=== PATIENT | male | born 1940 | race African-American/Black ===

== ENCOUNTER 2022-08-10 20:46 | Observation (INO) | payer MEDICARE, SELFPAY ==
[2022-08-10 20:52] VITALS: BP 158/58; PULSE 91; RESP 16; TEMP 36.6; O2SAT 100
[2022-08-10 21:31] VITALS: BP 139/61; PULSE 86; RESP 23; O2SAT 100
--- NOTE | 2022-08-10 21:49 | ECG_ITS ---
Measurements Intervals [place] Rate: 82 P: 63 NV: 168 QRS: 19 QRSD: 75 T: 58 QT: 339 QTc: 398 Interpretive Statements SINUS RHYTHM SEPTAL MYOCARDIAL INFARCTION , OF INDETERMINATE AGE Electronically Signed On 08-11-2022 10:16:15 CDT by Moris Coughlin M.D.
[2022-08-10 21:51] LABS: Anion Gap 4 mmol/L (8-16); Blood Urea Nitrogen 32 mg/dL (9-20); Carbon Dioxide 27 mmol/L (22-30); Chloride 105 mmol/L (98-107); Estimated CRCL calculation 32 ml/min; Estimated Glomerular Filt Rate 55; Glucose 194 mg/dL (65-110); Potassium 6.2 mmol/L (3.4-5.0); Sodium 136 mmol/L (137-145)
--- NOTE | 2022-08-10 21:58 | PC.NURSE ---
Pt's daughter at bedside. Daughter is patient's caregiver and helps answer most questions. Pt had routine blood work done today and was notified that his potassium was elevated and to go to the ER. Pt denies any complaints. Denies chest pain or SOB. Lung sounds clear bilaterally.
[2022-08-10] MEDS: SODIUM CHLORIDE 0.9% IV 1,000 ML 999 ML IV CONT (22:12)
[2022-08-10] MEDS: SODIUM BICARBONATE 8.4% 50 MEQ/50 ML SYRINGE IV PUSH (22:13)
[2022-08-10] MEDS: SODIUM ZIRCONIUM CYCLOSILICATE 10 GM POWD.PACK PO (22:13)
[2022-08-10 22:21] LABS: Basophils Percent Auto 0.5 % (0.2-1.2); Eosinophils Absolute Auto 0.1 K/mm3 (0-0.3); Eosinophils Percent Auto 2.6 % (0-4.4); Hematocrit 27.1 % (42.0-52.0); Hemoglobin 8.5 g/dL (14.0-18.0); Lymphocytes Absolute Auto 1.41 K/mm3 (0.9-3.2); Mean Corpuscular HGB Conc 31.4 g/dl (32-36); Mean Corpuscular Volume 95.8 fl (80-100); Mean Platelet Volume 10.1 fl (7.4-10.4); Monocytes Absolute Auto 0.3 K/mm3 (0.1-0.6); Monocytes Percent Auto 7.1 % (2.6-8.5); Neutrophils Absolute Auto 2.1 K/mm3 (1.3-6.7); Neutrophils Percent Auto 53.8 % (45.5-73.1); Platelet Count Result 224 k/mm3 (150-375); Red Blood Count 2.83 M/mm3 (4.6-6.20); Red Cell Distribution Width 12.1 % (11.5-14.5); White Blood Count 3.9 K/mm3 (4.5-10.0)
[2022-08-10 22:24] LABS: Appearance Urine Clear (Clear); Bacteria Urine None Seen /hpf; Bilirubin Urine Negative (Negative); Blood Urine Negative (Negative); Color Urine Yellow (Yellow); Glucose Urine UA Negative (Negative); Ketones Urine Negative (Negative); Leukocyte Esterase Ur Negative LEU/UL (Negative); Nitrate Urine Negative (Negative); Non Pathogenic Casts 0-2; Protein Urine Trace mg/dL (Negative); RBC Urine 0-2 /hpf (0-2); Specific Grav Ur 1.013 (1.001-1.035); Squamous Epithelial Cell Urine None seen /hpf (Few); Urobilinogen Urine 0.2 mg/dL (<2.0); WBC Urine 0-5 /hpf
[2022-08-10 22:53] LABS: Add Urine Microscopic? YES
--- NOTE | 2022-08-10 22:59 | ED.GENADULT ---
HPI - General Adult General Chief complaint: Recheck/Abnormal Lab/Rx Stated complaint: K 6.2, bloodwork drawn today at [facility] Time Seen by Provider: 08/10/22 21:22 History of Present Illness HPI narrative: 81-year-old male presenting to the ED for evaluation of outpatient labs showing a potassium of 6.2. Patient does have prior history of chronic kidney disease. Patient has no prior history of hyperkalemia. Patient denies any complaints at this time. Related Data Allergies Allergy/AdvReac Type Severity Reaction Status Date / Time No Known Allergies Allergy Mild Verified 08/10/22 20:47 Review of Systems Review of Systems: All systems reviewed & are unremarkable except as noted in HPI and below PMFSH Social History Social History Smoking status: Never smoker Second hand tobacco smoke exposure: No Smoking end date: 05/13/1967 Alcohol intake: never Exam Narrative: APPEARANCE: Well appearing, no pain, no distress, well-nourished. HEAD: normocephalic, atraumatic. EYES: PERRLA/EOMI, conjunctivae clear. NOSE: Normal no drainage NECK: Supple. No adenopathy, no masses. RESPIRATORY: Airway patent, respirations nonlabored. Clear to auscultation bilaterally, no rales, rhonchi, wheezing. CARDIOVASCULAR: Regular rate and rhythm without murmurs rubs or gallops. ABDOMINAL: Soft, nontender, nondistended, normal bowel sounds MUSCULOSKELETAL: Moves all extremities. Strength/ROM intact, No edema, No calf tenderness. NEURO: Alert. Cranial nerves II through XII intact. Grossly intact SKIN: Warm, dry. Normal Color Course Course Emergency Course: 81-year-old male presenting for evaluation of hyperkalemia. Patient's repeat potassium was 6.2 patient's EKG showed no significant abnormalities and no significant T wave abnormalities. Patient was treated with bicarb, Lokelma, IV fluids and albuterol, insulin and glucose. Patient had no significant urinary retention on the post residual bladder scan. 1:20 AM called the [facility] and no beds were available. Discussed the case with the hospitalist and patient was accepted for admission. Vital Signs Vital signs: Vital Signs Temperature 97.9 F 08/10/22 20:52 Pulse Rate 91 08/10/22 20:52 Respiratory Rate 16 08/10/22 20:52 Blood Pressure 158/58 H 08/10/22 20:52 Pulse Oximetry 100 08/10/22 20:52 Temperature 97.9 F 08/10/22 20:52 Pulse Rate 81 08/11/22 01:32 Respiratory Rate 20 08/11/22 01:32 Blood Pressure 121/56 L 08/11/22 01:32 Pulse Oximetry 100 08/11/22 01:32 Medical Decision Making Vital Signs Vital Signs: Vital Signs Temperature 97.9 F 08/10/22 20:52 Pulse Rate 91 08/10/22 20:52 Respiratory Rate 16 08/10/22 20:52 Blood Pressure 158/58 H 08/10/22 20:52 Pulse Oximetry 100 08/10/22 20:52 Temperature 97.9 F 08/10/22 20:52 Pulse Rate 81 08/11/22 01:32 Respiratory Rate 20 08/11/22 01:32 Blood Pressure 121/56 L 08/11/22 01:32 Pulse Oximetry 100 08/11/22 01:32 Lab Data Lab results reviewed: Yes I reviewed the patient's lab results. 08/10/22 22:11 08/10/22 21:04 Labs: Lab Results 08/10/22 08/10/22 08/10/22 Range/Units 21:04 22:11 22:11 WBC 3.9 L (4.5-10.0) K/mm3 RBC 2.83 L (4.6-6.20) M/mm3 Hgb 8.5 L (14.0-18.0) g/dL Hct 27.1 L (42.0-52.0) % MCV 95.8 (80-100) fl MCH 30.0 (26-34) pg MCHC 31.4 L (32-36) g/dl RDW 12.1 (11.5-14.5) % Plt Count 224 (150-375) k/mm3 MPV 10.1 (7.4-10.4) fl Immature Gran % (Auto) 0.0 (0-0.5) % Neut % (Auto) 53.8 (45.5-73.1) % Lymph % (Auto) 36.0 (18.3-44.2) % Bryan % (Auto) 7.1 (2.6-8.5) % Eos % (Auto) 2.6 (0-4.4) % Baso % (Auto) 0.5 (0.2-1.2) % Lymph # (Auto) 1.41 (0.9-3.2) K/mm3 Bryan # (Auto) 0.3 (0.1-0.6) K/mm3 Eos # (Auto) 0.1 (0-0.3) K/mm3 Baso # (Auto) 0.0 (0.0-0.1) K/mm3 Abs Immat Gran (auto) 0.00 (0.00-0.031) K/mm3 Absolute Neuts (aut
[2022-08-10 23:01] VITALS: BP 132/62; PULSE 82; RESP 20; O2SAT 100
[2022-08-10 23:31] VITALS: BP 131/66; PULSE 81; RESP 20
[2022-08-10] MEDS: INSULIN HUMAN REGULAR (*BKC) 100 UNITS/ML 6 UNITS IV PUSH (23:43)
[2022-08-10] MEDS: DEXTROSE 50% 25 GM/50 ML SYRINGE IV PUSH (23:43)
[2022-08-10] MEDS: SODIUM CHLORIDE 0.9% IV 1,000 ML 250 ML IV CONT (23:43)
[2022-08-11] VITALS (12 sets, daily range): BP systolic 121–143; BP diastolic 52–65; PULSE 70–85; RESP 16–22; TEMP 36.4–36.6; O2SAT 96–100; BMI 24.3
--- NOTE | 2022-08-11 01:20 | PC.NURSE ---
Called [facility], spoke to VALDEZ Thomas. There are no beds available at this time at the [facility] per the Nurse/Crust Sorter, ANTHONY Roger.
--- NOTE | 2022-08-11 02:40 | ADMGEN ---
This patient, Leif Boyce, was admitted to Medical Room 348-01. Patient/family oriented to hospital policies and general routines including ID bracelet, bed and alarms, visiting hours, pain management, procedures, bathroom and other care routines, personal items, smoking policy, room service/diet, and visiting hours. Information on how to activate the Rapid Response Team has been discussed. Patient/Family are encouraged to report perceived risks to care and to ask questions if they do not understand what they are told or what they should do.
[2022-08-11 03:05] LABS: Glucose Point of Care 93 mg/dl (65-105)
[2022-08-11 06:40] LABS: Anion Gap 5 mmol/L (8-16); Blood Urea Nitrogen 28 mg/dL (9-20); Calcium 8.7 mg/dL (8.4-10.2); Carbon Dioxide 26 mmol/L (22-30); Chloride 109 mmol/L (98-107); Estimated CRCL calculation 37 ml/min; Estimated Glomerular Filt Rate > 60; Glucose 101 mg/dL (65-110); Potassium 4.9 mmol/L (3.4-5.0); Sodium 140 mmol/L (137-145)
[2022-08-11 08:52] LABS: Glucose Point of Care 91 mg/dl (65-105)
[2022-08-11 11:52] LABS: Glucose Point of Care 259 mg/dl (65-105)
--- NOTE | 2022-08-11 13:12 | PC.NURSE ---
Current medication list obtained from patients daughter at 0900.
--- NOTE | 2022-08-11 14:11 | PM.IMHP ---
H&P: HPI History of Present Illness Date/Time: 08/11/22 14:11 Chief Complaint: Chief complaint: Recheck/Abnormal Lab/Rx Stated complaint: K 6.2, bloodwork drawn today at [facility] Narrative: ED-HPI narrative: 81-year-old male presenting to the ED for evaluation of outpatient labs showing a potassium of 6.2.? Patient does have prior history of chronic kidney disease.? Patient has no prior history of hyperkalemia.? Patient denies any complaints at this time. jc is sleeping his daughter is present and provides history, patient with history of DM and seen at [facility] and had routine labs drawn on 08/10/2022 and received a call from the [facility] that patient potassium is elevated 6.2 and he needs to go to nearest ER, patient, there is no complaints of CP, palpitation or dizziness, patient was given lokelma from ER and his repeat potassium levels is 4.9, etiology is not sure cause of hyperkelemia, possibly hemolysis of sample, patient is on Lisinopril which can spare potassium, patient dehydrated as patient BUN and Scr were elevated upon arrival, will hold lisinopril, will monitor if remains clinically stable and potassium is within normal, may dishcarge patient tomorrow. Patient admitted as observation status Review of Systems Review of Systems: All systems reviewed & are unremarkable except as noted in HPI and below PMFSH Social History Social History Smoking status: Former smoker Second hand tobacco smoke exposure: No Smoking end date: 05/13/1967 Alcohol intake: never Substance use: never Lack of Transportation: No Lack of Food: Never True Current Housing: I Have Housing Concerned About Future Housing: No Difficulty Paying Gas/Electric Bills: No Difficulty Paying for Meds: No Currently Unemployed: No Education: Decline to Answer Difficulty w/ Childcare or Family Care: No Spiritual care concerns: No Meds Home Medications and Allergies Home Medications Medication Instructions Recorded Confirmed Type cholecalciferol (vitamin D3) 50 50 mcg PO BID 08/11/22 08/11/22 History mcg (2,000 unit) tablet diltiazem HCl 300 mg capsule,24 300 mg PO QAM 08/11/22 08/11/22 History hr,extended release ferrous sulfate 325 mg (65 mg 325 mg PO DAILY 08/11/22 08/11/22 History iron) tablet lisinopril 20 mg tablet 20 mg PO DAILY 08/11/22 08/11/22 History metformin 500 mg tablet 500 mg PO BID 08/11/22 08/11/22 History Allergies Allergy/AdvReac Type Severity Reaction Status Date / Time No Known Allergies Allergy Mild Verified 08/10/22 20:47 Vital Signs Vital Signs - 24 hr 08/10/22 20:52 08/10/22 21:31 08/10/22 23:01 Temperature 97.9 F Pulse Rate 91 86 82 Respiratory Rate 16 23 H 20 Blood Pressure 158/58 H 139/61 132/62 Pulse Oximetry 100 100 100 Oxygen Delivery 08/10/22 23:31 08/11/22 01:01 08/11/22 01:32 Temperature Pulse Rate 81 85 81 Respiratory Rate 20 22 H 20 Blood Pressure 131/66 132/61 121/56 L Pulse Oximetry 99 100 Oxygen Delivery 08/11/22 02:40 08/11/22 04:00 08/11/22 04:07 Temperature 97.8 F Pulse Rate 72 85 Respiratory Rate 18 Blood Pressure 135/65 Pulse Oximetry 96 Oxygen Delivery Room Air 08/11/22 08:07 Temperature Pulse Rate Respiratory Rate Blood Pressure Pulse Oximetry 96 Oxygen Delivery Room Air Exam Narrative: Patient is comfortable, NAD HEENT: eyes are clear and none icteric LUNGS: Normal respiratory effort ABD: Not distended Lower extremities: no edema SKIN: nonjaundiced Neuro: grossly intact. H&P: Results Labs Labs: Short CBC 08/10/22 Range/Units 22:11 WBC 3.9 L (4.5-10.0) K/mm3 Hgb 8.5 L (14.0-18.0) g/dL Hct 27.1 L (42.0-52.0) % Plt Count 224 (150-375) k/mm3 [facility] 08/10/22 08/11/22 21:04 06:02 Sodium 136 L 140 Potassium 6.2 H* 4.9 Chloride 105 109 H Carbon Dioxide 27 26 BUN 32 H 28 H Creatinine 1.50 H 1.30 Glucose 194 H 101 Calcium 9.0 8.7
[2022-08-11] MEDS: FERROUS SULFATE 324 MG TABLET PO (16:53)
[2022-08-11] MEDS: metFORMIN HCL 500 MG TABLET PO (16:53)
[2022-08-11 16:59] LABS: Glucose Point of Care 152 mg/dl (65-105)
[2022-08-11] MEDS: ACETAMINOPHEN 500 MG TABLET 1000 MG PO (18:26)
[2022-08-11] MEDS: CHOLECALCIFEROL 1,000 UNITS TABLET 2000 UNITS PO (21:31)
[2022-08-12] VITALS: PULSE 51
[2022-08-12] MEDS: ACETAMINOPHEN 500 MG TABLET 1000 MG PO ×4 (00:13→17:12)
[2022-08-12 04:16] VITALS: BP 143/55; PULSE 67; RESP 18; TEMP 36.1; O2SAT 100
[2022-08-12 06:03] LABS: Hematocrit 29.9 % (42.0-52.0); Hemoglobin 9.1 g/dL (14.0-18.0); Mean Corpuscular HGB Conc 30.4 g/dl (32-36); Mean Corpuscular Volume 95.2 fl (80-100); Mean Platelet Volume 10.1 fl (7.4-10.4); Platelet Count Result 257 k/mm3 (150-375); Red Blood Count 3.14 M/mm3 (4.6-6.20); White Blood Count 4.3 K/mm3 (4.5-10.0)
[2022-08-12 06:18] LABS: Anion Gap 6 mmol/L (8-16); Blood Urea Nitrogen 24 mg/dL (9-20); Carbon Dioxide 27 mmol/L (22-30); Chloride 105 mmol/L (98-107); Estimated CRCL calculation 37 ml/min; Estimated Glomerular Filt Rate > 60; Glucose 119 mg/dL (65-110); Magnesium 1.7 mg/dL (1.6-2.3); Potassium 4.8 mmol/L (3.4-5.0); Sodium 138 mmol/L (137-145)
[2022-08-12 08:21] LABS: Glucose Point of Care 113 mg/dl (65-105)
[2022-08-12 09:00] VITALS: PULSE 67; RESP 18; O2SAT 100
[2022-08-12] MEDS: ENOXAPARIN 40 MG/0.4 ML SYRINGE SUB-Q (09:01)
[2022-08-12] MEDS: FERROUS SULFATE 324 MG TABLET PO (09:02)
[2022-08-12] MEDS: CHOLECALCIFEROL 1,000 UNITS TABLET 2000 UNITS PO (09:02)
[2022-08-12] MEDS: metFORMIN HCL 500 MG TABLET PO ×2 (09:02→17:13)
[2022-08-12 12:20] LABS: Glucose Point of Care 173 mg/dl (65-105)
[2022-08-12 14:00] VITALS: BP 129/47; PULSE 57; RESP 16; TEMP 36.1; O2SAT 100
[2022-08-12 17:09] LABS: Glucose Point of Care 155 mg/dl (65-105)
--- NOTE | 2022-08-12 18:22 | PM.DS ---
DS: Admitting Diagnosis Discharge Date 08/12/2022 Admitting Diagnosis Hyperkalemia DS: Discharge Diagnosis Discharge Diagnosis (1) Acute hyperkalemia: Code(s): E87.5 - Hyperkalemia Status: Acute Assessment and Plan: ED-[facility] narrative: 81-year-old male presenting to the ED for evaluation of outpatient labs showing a potassium of 6.2.? Patient does have prior history of chronic kidney disease.? Patient has no prior history of hyperkalemia.? Patient denies any complaints at this time. jc is sleeping his daughter is present and provides history, patient with history of DM and seen at [facility] and had routine labs drawn on 08/10/2022 and received a call from the [facility] that patient potassium is elevated 6.2 and he needs to go to nearest ER, patient, there is no complaints of CP, palpitation or dizziness, patient was given lokelma from ER and his repeat potassium levels is 4.9, etiology is not sure cause of hyperkelemia, possibly hemolysis of sample, patient is on Lisinopril which can spare potassium, patient dehydrated as patient BUN and Scr were elevated upon arrival, will hold lisinopril, will monitor if remains clinically stable and potassium is within normal, may dishcarge patient tomorrow. (2) CKD (chronic kidney disease): Code(s): N18.9 - Chronic kidney disease, unspecified Status: Acute Assessment and Plan: Most likely acute on chronic secondary to dehydration will monitor kidney function (3) Diabetes: Code(s): E11.9 - Type 2 diabetes mellitus without complications Status: Acute Assessment and Plan: Will resume home medication monitor sliding scale DS: Summary Hospital Course Reason for hospitalization: 81-year-old male presenting to the ED for evaluation of outpatient labs showing a potassium of 6.2.? Patient does have prior history of chronic kidney disease.? Patient has no prior history of hyperkalemia.? Patient denies any complaints at this time. jc is sleeping his daughter is present and provides history, patient with history of DM and seen at [facility] and had routine labs drawn on 08/10/2022 and received a call from the [facility] that patient potassium is elevated 6.2 and he needs to go to nearest ER, patient, there is no complaints of CP, palpitation or dizziness, patient was given lokelma from ER and his repeat potassium levels is 4.9, etiology is not sure cause of hyperkelemia, possibly hemolysis of sample, patient is on Lisinopril which can spare potassium, patient dehydrated as patient BUN and Scr were elevated upon arrival, will hold lisinopril, will monitor if remains clinically stable and potassium is within normal, may dishcarge patient tomorrow. Hospital Course: patient was given lokelma from ER and his repeat potassium levels is 4.9, etiology is not sure cause of hyperkelemia, possibly hemolysis of sample, patient is on Lisinopril which can spare potassium, patient dehydrated as patient BUN and Scr were elevated upon arrival, held lisinopril, today patient potassium is close to normal, patient is clinically stable will discharge the patient with his daughter to follow up with his primary care provider at [facility]. Time Spent with Patient Time attestation: Total time spent providing and/or coordinating discharge services: Exam Narrative: Patient is comfortable, NAD HEENT: eyes are clear and none icteric LUNGS: Normal respiratory effort ABD: Not distended Lower extremities: no edema SKIN: nonjaundiced Neuro: grossly intact. DS: Data Data Completed and Pending Labs on day of discharge: Labs from last 24 hours 08/12/22 08/12/22 08/12/22 17:01 12:16 08:16 WBC RBC Hgb Hct MCV MCH MCHC RDW Plt Count MPV Sodium Potassium Chloride Carbon Dioxide Anion Gap BUN Creatinine Estim Creat Clear Calc Estimated GFR Glucose POC Capillary Glucose 155 H 173 H 113 H Calcium
== END 2022-08-12 18:41 | disposition home or self-care (01) ==
LOC: ANHED 08-11 00:16 → ANH3MED 08-11 02:32
PROVIDERS: Emergency Medicine; Internal Medicine; Admitting Provider Family Medicine; Emergency Provider Emergency Medicine; Visit Provider Family Medicine
DX: E87.5 Hyperkalemia (principal); E11.22 Type 2 diabetes mellitus with diabetic chronic kidney disease; N18.9 Chronic kidney disease, unspecified; Z79.85 Long-term (current) use of injectable non-insulin antidiabetic drugs; R33.9 Retention of urine, unspecified; E86.0 Dehydration; R79.89 Other specified abnormal findings of blood chemistry; Z87.891 Personal history of nicotine dependence; Z79.84 Long term (current) use of oral hypoglycemic drugs; Z79.899 Other long term (current) drug therapy
CPT/HCPCS: 36415; 80048; 81001; 82948; 83735; 85025; 85027; 93005; 96361; 96372; 96374; 96375; 99285; A9270; G0378; J1650; J1815; J7030

== ENCOUNTER 2023-02-23 17:04 | Emergency (ER) | payer MEDICARE, OTHER, SELFPAY ==
[2023-02-23 17:17] VITALS: BP 149/56; PULSE 66; RESP 14; TEMP 36.6; O2SAT 100
[2023-02-23] MEDS: LIDO 1%/EPINEPHRINE 1:100,000 50 ML VIAL 8 ML INFILTRATE (17:35)
--- NOTE | 2023-02-23 17:46 | ED.SKABFB ---
HPI - Skin/Abscess/Foreign Bdy General Chief complaint: Skin/Abscess/Foreign Body Stated complaint: red spot on back Time Seen by Provider: 02/23/23 17:20 Source: patient, family (Daughter) and RN notes reviewed Mode of arrival: ambulatory Limitations: no limitations History of Present Illness HPI narrative: Lien presents patient today complaining of a red lump to patient's left mid back x4 days. Currently rates pain 2/10. He has tried no [id number] interventions prior to arrival. No history of abscesses or staph infections. Related Data Home Medications Medication Instructions Recorded Confirmed cholecalciferol (vitamin D3) 50 50 mcg PO BID 08/11/22 02/23/23 mcg (2,000 unit) tablet diltiazem HCl 300 mg capsule,24 300 mg PO QAM 08/11/22 02/23/23 hr,extended release ferrous sulfate 325 mg (65 mg 325 mg PO DAILY 08/11/22 02/23/23 iron) tablet lisinopril 20 mg tablet 20 mg PO DAILY 08/11/22 02/23/23 metformin 500 mg tablet 500 mg PO BID 08/11/22 02/23/23 Allergies Allergy/AdvReac Type Severity Reaction Status Date / Time No Known Allergies Allergy Mild Verified 08/10/22 20:47 Review of Systems Review of Systems: CONSTITUTIONAL: Denies body aches, fever, chills, or sweats. EYES: Denies visual changes, redness, or discharge. ENT: Denies rhinorrhea, congestion, sore throat, or otalgia. CARDIOVASCULAR: Denies chest pain, palpitations, or edema. RESPIRATORY: Denies cough or dyspnea. GASTROINTESTINAL: Denies abdominal pain, nausea, vomiting, or diarrhea. GENITOURINARY: Denies dysuria or hematuria. SKIN: + abscess MUSCULOSKELETAL: Denies back pain, joint pain, or myalgia. NEUROLOGIC: Denies headache, numbness, tingling, or weakness. PSYCH: Denies depression or anxiety. [facility] Past Medical History Medical History (Updated 02/23/23 @ 17:52 by Yadira Fiore, ALFONSO, BC) Carotid artery disease History of heart attack Surgical History Surgical History (Updated 02/23/23 @ 17:52 by Yadira Fiore, ALFONSO, BC) History of cholecystectomy Social History Social History Smoking status: Former smoker Second hand tobacco smoke exposure: No Smoking end date: 05/13/1967 Alcohol intake: never Substance use: never Lack of Transportation: No Lack of Food: Never True Current Housing: I Have Housing Concerned About Future Housing: No Difficulty Paying Gas/Electric Bills: No Difficulty Paying for Meds: No Currently Unemployed: No Education: Decline to Answer Difficulty w/ Childcare or Family Care: No Spiritual care concerns: No Comments At time of signature, I have reviewed and agree with nursing past medical, surgical, social and family history unless otherwise noted. Please see nursing chart for further information. There is no relevant family history pertinent to the presenting complaint Exam Narrative: GENERAL: Well-appearing, well-nourished, and in no acute distress. HEAD: Normocephalic, atraumatic. EYES: EOMI. No redness or drainage. Conjunctivae normal. ENT: Mucous membranes pink and moist. NECK: Normal AROM. EXTREMITIES: Normal range of motion. No edema. SKIN: Warm, dry, no rash. Capillary refill normal. Normal skin turgor. Approximately 3 cm erythematous fluctuant lesion to the left mid back that is mildly tender to palpation. No drainage. NEURO: No focal deficits. Alert and oriented x3. Gait steady. PSYCH: Normal affect. No signs of depression or anxiety. Course Course Level of Care: Express Care Visit Vital Signs Vital signs: Vital Signs Temperature 97.8 F 02/23/23 17:17 Pulse Rate 66 02/23/23 17:17 Respiratory Rate 14 02/23/23 17:17 Blood Pressure 149/56 H 02/23/23 17:17 Pulse Oximetry 100 02/23/23 17:17 Oxygen Delivery Room Air 02/23/23 17:17 Temperature 97.8 F 02/23/23 17:17 Pulse Rate 66 02/23/23 17:17 Respiratory Rate 14 02/23/23 17:17
== END 2023-02-23 17:52 | disposition home or self-care (01) ==
PROVIDERS: Emergency Provider Nurse Practitioner
DX: L02.212 Cutaneous abscess of back [any part, except buttock and flank] (principal); Z87.891 Personal history of nicotine dependence; I25.10 Atherosclerotic heart disease of native coronary artery without angina pectoris; I25.2 Old myocardial infarction
CPT/HCPCS: 10061; 99213; G0463

== ENCOUNTER 2023-04-05 07:12 | Emergency (ER) | payer MEDICARE, OTHER, SELFPAY ==
[2023-04-05] VITALS (10 sets, daily range): BP systolic 124–152; BP diastolic 57–73; PULSE 81–88; RESP 19–24; TEMP 36.6; O2SAT 100
--- NOTE | ~2023-04-05 | CT_ITS ---
EXAMINATION: CT abdomen pelvis w con INDICATION: Lower abdominal pain TECHNIQUE: Computed tomographic images of the abdomen and pelvis were obtained after the administrati on of 100 cc of Omnipaque 350 intravenous contrast. The dose-length product (DLP) was 353.72 mGy-cm. Automated exposure control and iterative reconstruction technique were employed. COMPARISON: 12/22/2015 FINDINGS: Minimal dependent atelectasis is present in the lung bases. The heart size is normal. Vogt es of cholecystectomy are noted. The liver is diffusely low in attenuation when compared with the spl een, consistent with hepatic steatosis. The spleen, pancreas, and adrenal glands are normal. Cysts of the kidneys measure up to 13 mm on the left. No pathologically enlarged abdominal or pelvic lymph no kamala are identified. No free intraperitoneal gas or evidence of bowel obstruction. There is marked enl argement of the prostate. There is circumferential wall thickening of the urinary bladder. There is s evere lumbar spondylosis. IMPRESSION: 1. No CT correlate for the patient's symptoms. 2. Marked enlargement of the prostate with circumferential wall thickening of the urinary bladder, li [place] due to chronic outlet obstruction. Reviewed, dictated and finalized at location [facility]. [facility] IMPRESSION: 1. No CT correlate for the patient's symptoms. 2. Marked enlargement of the prostate with circumferential wall thickening of t he urinary bladder, likely due to chronic outlet obstruction.
--- NOTE | 2023-04-05 08:01 | ED.GENADULT ---
HPI - General Adult General Chief complaint: GI Bleed Stated complaint: abdominal pain Time Seen by Provider: 04/05/23 07:24 History of Present Illness HPI narrative: 82-year-old male presented to the emergency department for evaluation reported abdominal pain, dark stool and decreased p.o. intake. Daughter states that the patient had lived with his brother for approximately 14 years but the brother did recently passed and now the patient lives with daughter. Daughter states that the patient has had decreased p.o. intake. States that the patient had been complaining of abdominal pain earlier. Patient is not complaining of abdominal pain at this time. The daughter states that she felt the patient had some dark stools today as well. Related Data Home Medications Medication Instructions Recorded Confirmed cholecalciferol (vitamin D3) 50 50 mcg PO BID 08/11/22 02/23/23 mcg (2,000 unit) tablet diltiazem HCl 300 mg capsule,24 300 mg PO QAM 08/11/22 02/23/23 hr,extended release ferrous sulfate 325 mg (65 mg 325 mg PO DAILY 08/11/22 02/23/23 iron) tablet lisinopril 20 mg tablet 20 mg PO DAILY 08/11/22 02/23/23 metformin 500 mg tablet 500 mg PO BID 08/11/22 02/23/23 Allergies Allergy/AdvReac Type Severity Reaction Status Date / Time No Known Allergies Allergy Mild Verified 04/05/23 07:23 Review of Systems Review of Systems: All systems reviewed & are unremarkable except as noted in HPI and below PMFSH Past Medical History Medical History (Updated 04/06/23 @ 00:00 by Nicole Luo) Carotid artery disease History of heart attack Surgical History Surgical History (Updated 02/23/23 @ 17:52 by Yadira Fiore, [employer], ) History of cholecystectomy Social History Social History Smoking status: Former smoker Second hand tobacco smoke exposure: No Smoking end date: 05/13/1967 Alcohol intake: never Substance use: never Lack of Transportation: No Lack of Food: Never True Current Housing: I Have Housing Concerned About Future Housing: No Difficulty Paying Gas/Electric Bills: No Difficulty Paying for Meds: No Currently Unemployed: No Education: Decline to Answer Difficulty w/ Childcare or Family Care: No Spiritual care concerns: No Exam Narrative: APPEARANCE: Well appearing, no pain, no distress, well-nourished. HEAD: normocephalic, atraumatic. EYES: PERRLA/EOMI, conjunctivae clear. NOSE: Normal no drainage EARS:TMS clear with good light reflex. THROAT: Pharynx clear, no exudate. NECK: Supple. No adenopathy, no masses. RESPIRATORY: Airway patent, respirations nonlabored. Clear to auscultation bilaterally, no rales, rhonchi, wheezing. CARDIOVASCULAR: Regular rate and rhythm without murmurs rubs or gallops. ABDOMINAL: Soft, nontender, nondistended, normal bowel sounds MUSCULOSKELETAL: Moves all extremities. Strength/ROM intact, No edema, No calf tenderness. NEURO: Alert. Cranial nerves II through XII intact. Good gait. Good coordination Rectal exam: Hemoccult negative SKIN: Warm, dry. Normal Color Course Course Emergency Course: 82-year-old male presents emergency department for evaluation dark stool abdominal pain and failure to thrive. Patient was Hemoccult negative on his digital rectal exam Patient denies any pain or complaint. Patient was afebrile with no leukocytosis and a hemoglobin of 10.2. This is similar to his baseline. Patient did have a potassium of 5.2 a creatinine of 1.5 and patient was treated with IV fluids. Patient has no evidence of urinary tract infection. Patient was Hemoccult negative from below. Patient was negative for influenza RSV and COVID. Patient's CT scan showed no acute abnormality. I updated the patient family results of the workup all questions and concerns were addressed. Patient denies any complaints. Daughter still had concerns that the patient still does n
[2023-04-05 08:03] LABS: Basophils Percent Auto 0.2 % (0.2-1.2); Eosinophils Percent Auto 0.7 % (0-4.4); Hemoglobin 10.2 g/dL (14.0-18.0); Immature Granulocyte Absolute 0.01 K/mm3 (0.00-0.031); Immature Granulocyte Percent A 0.2 % (0-0.5); Lymphocytes Absolute Auto 1.23 K/mm3 (0.9-3.2); Lymphocytes Percent Auto 26.9 % (18.3-44.2); Mean Corpuscular Hemoglobin 28.5 pg (26-34); Mean Platelet Volume 10.2 fl (7.4-10.4); Monocytes Absolute Auto 0.2 K/mm3 (0.1-0.6); Monocytes Percent Auto 3.9 % (2.6-8.5); Neutrophils Absolute Auto 3.1 K/mm3 (1.3-6.7); Neutrophils Percent Auto 68.1 % (45.5-73.1); Platelet Count Result 261 k/mm3 (150-375); Red Blood Count 3.58 M/mm3 (4.6-6.20); Red Cell Distribution Width 12.2 % (11.5-14.5); White Blood Count 4.6 K/mm3 (4.5-10.0)
[2023-04-05 08:15] LABS: Prothrombin Time 13.2 Seconds (11.1-14.7)
[2023-04-05 08:16] LABS: Partial Thromboplastin Time 26.6 SECONDS (22.3-36.8)
[2023-04-05 08:56] LABS: Alanine Aminotransferase 10 U/L (6-50); Albumin Level 3.9 g/dL (3.5-5.1); Alkaline Phosphatase 68 U/L (38-126); Anion Gap 9 mmol/L (8-16); Aspartate Amino Transferase 23 U/L (17-59); Bilirubin,Total 0.4 mg/dL (0.2-1.3); Blood Urea Nitrogen 28 mg/dL (9-20); Calcium 9.5 mg/dL (8.4-10.2); Carbon Dioxide 26 mmol/L (22-30); Chloride 103 mmol/L (98-107); Estimated CRCL calculation 30 ml/min; Estimated Glomerular Filt Rate 55; Glucose 114 mg/dL (65-110); Potassium 5.2 mmol/L (3.4-5.0); Sodium 138 mmol/L (137-145)
[2023-04-05 09:17] LABS: Influenza A QL RT-PCR Negative (Negative); Influenza B QL RT-PCR Negative (Negative); RSV RNA, RT-PCR Negative (Negative); SARS-CoV-2 RNA PCR Negative (Negative)
[2023-04-05 09:17] LABS: Appearance Urine Clear (Clear); Bacteria Urine None Seen /hpf; Bilirubin Urine Negative (Negative); Blood Urine 2+ (Negative); Color Urine Yellow (Yellow); Glucose Urine UA Negative (Negative); Ketones Urine Negative (Negative); Leukocyte Esterase Ur Negative LEU/UL (Negative); Nitrate Urine Negative (Negative); Non Pathogenic Casts 0-2; Protein Urine Negative (Negative); RBC Urine 21-50 /hpf (0-2); Specific Grav Ur 1.013 (1.001-1.035); Squamous Epithelial Cell Urine None seen /hpf (Few); WBC Urine 0-5 /hpf; pH Urine 6.5 (5.0-9.0)
[2023-04-05 09:28] LABS: Add Urine Microscopic? YES
== END 2023-04-05 10:44 | disposition home or self-care (01) ==
PROVIDERS: Emergency Provider Emergency Medicine
DX: R53.1 Weakness (principal); R63.0 Anorexia; Z20.822 Contact with and (suspected) exposure to COVID-19; I25.10 Atherosclerotic heart disease of native coronary artery without angina pectoris; I25.2 Old myocardial infarction; Z90.49 Acquired absence of other specified parts of digestive tract; Z87.891 Personal history of nicotine dependence; Z79.84 Long term (current) use of oral hypoglycemic drugs; Z68.21 Body mass index [BMI] 21.0-21.9, adult
CPT/HCPCS: 36415; 74177; 80053; 81001; 85025; 85610; 85730; 86850; 86900; 86901; 87637; 99284; Q9967

== ENCOUNTER 2023-04-12 00:43 | Inpatient (IN) | payer OTHER, MEDICARE, SELFPAY ==
[2023-04-12] VITALS (20 sets, daily range): BP systolic 105–164; BP diastolic 58–89; PULSE 100–129; RESP 12–23; TEMP 36.2–36.8; O2SAT 93–100; BMI 17.4
--- NOTE | ~2023-04-12 | CT_ITS ---
Non-contrast CT scan of the Abdomen and Pelvis Clinical indication: Acute renal sufficiency Technique: 2.5 mm axial scans were obtained through the abdomen and pelvis without intravenous or or al contrast. Dose reduction technique was used on this scan by utilizing automated exposure control a nd iterative reconstruction technique. The dose-length product (DLP) was 523.28 mGy-cm. COMPARISON: 04/05/2023 Findings: Images through the lung bases reveal no abnormalities. There is no evidence of renal or ureteral calculi. The kidneys and the ureters are nondilated. The liver, spleen, pancreas, and adrenals appear normal. Cholecystectomy clips are present. There is no aortic aneurysm. There is no evidence of bowel obstruction. Questionable wall thickening of the duodenum. Images through the pelvis were performed. There is no evidence of ascites or lymphadenopathy. Urinary bladder unremarkable. Prostate gland is markedly enlarged. Impression: Possible wall thickening of the duodenum. Correlate for duodenitis/peptic ulcer disease. No free air evident. Markedly enlarged prostate gland. Reviewed, dictated and finalized at [facility]. [employer] Impression: Possible wall thickening of the duodenum. Correlate for duodenitis/peptic ulcer disease. No free air evident. Markedly enlarged prostate gland.
[2023-04-12 00:52] LABS: Glucose Point of Care > 500 mg/dl (65-105)
[2023-04-12 01:01] LABS: Basophils Percent Auto 0.1 % (0.2-1.2); Hematocrit 34.7 % (42.0-52.0); Hemoglobin 10.6 g/dL (14.0-18.0); Immature Granulocyte Absolute 0.07 K/mm3 (0.00-0.031); Immature Granulocyte Percent A 0.5 % (0-0.5); Lymphocytes Absolute Auto 0.68 K/mm3 (0.9-3.2); Lymphocytes Percent Auto 4.6 % (18.3-44.2); Mean Corpuscular HGB Conc 30.5 g/dl (32-36); Mean Corpuscular Hemoglobin 28.6 pg (26-34); Mean Corpuscular Volume 93.5 fl (80-100); Mean Platelet Volume 11.1 fl (7.4-10.4); Monocytes Absolute Auto 0.8 K/mm3 (0.1-0.6); Monocytes Percent Auto 5.7 % (2.6-8.5); Neutrophils Absolute Auto 13.2 K/mm3 (1.3-6.7); Neutrophils Percent Auto 89.1 % (45.5-73.1); Platelet Count Result 290 k/mm3 (150-375); Red Blood Count 3.71 M/mm3 (4.6-6.20); Red Cell Distribution Width 12.7 % (11.5-14.5); White Blood Count 14.8 K/mm3 (4.5-10.0)
[2023-04-12 01:16] LABS: Beta-Hydroxybutyrate/Acetoacetate 0.61 mmol/L (0.02-0.27)
[2023-04-12 01:24] LABS: Anisocytosis 1+ (NORMAL); Platelet Estimate Adequate (Adequate); Poikilocytosis 1+ (NORMAL); Schistocytes Rare (NORMAL); Smudge Cells PRESENT
[2023-04-12 01:56] LABS: Appearance Urine Cloudy (Clear); Bacteria Urine 1+ /hpf; Bilirubin Urine Negative (Negative); Blood Urine 3+ (Negative); Color Urine Yellow (Yellow); Glucose Urine UA 3+ mg/dL (Negative); Ketones Urine Negative (Negative); Leukocyte Esterase Ur Negative LEU/UL (Negative); Nitrate Urine Negative (Negative); Non Pathogenic Casts 0-2; Protein Urine 2+ mg/dL (Negative); RBC Urine >100 /hpf (0-2); Specific Grav Ur 1.021 (1.001-1.035); Squamous Epithelial Cell Urine Occasional /hpf (Few); Urobilinogen Urine 0.2 mg/dL (<2.0); pH Urine 5.5 (5.0-9.0)
[2023-04-12 02:09] LABS: Add Urine Microscopic? YES
[2023-04-12 02:09] LABS: Alanine Aminotransferase 11 U/L (6-50); Albumin Level 4.1 g/dL (3.5-5.1); Alkaline Phosphatase 132 U/L (38-126); Anion Gap 13 mmol/L (8-16); Aspartate Amino Transferase 19 U/L (17-59); Bilirubin,Total 0.7 mg/dL (0.2-1.3); Blood Urea Nitrogen 94 mg/dL (9-20); Calcium 9.6 mg/dL (8.4-10.2); Carbon Dioxide 19 mmol/L (22-30); Chloride 111 mmol/L (98-107); Estimated CRCL calculation 11 ml/min; Estimated Glomerular Filt Rate 15; Glucose 593 mg/dL (65-110); Magnesium 2.1 mg/dL (1.6-2.3); Sodium 143 mmol/L (137-145)
[2023-04-12] MEDS: INSULIN HUMAN REGULAR (*BKC) 100 UNITS/ML 10 UNITS IV PUSH (02:30)
[2023-04-12] MEDS: SODIUM CHLORIDE 0.9% IV 1,000 ML 999 ML IV CONT ×2 (02:31)
[2023-04-12 04:09] LABS: Glucose Point of Care 441 mg/dl (65-105)
[2023-04-12] MEDS: SODIUM CHLORIDE 0.9% IV 1,000 ML 150 ML IV CONT (05:15)
--- NOTE | 2023-04-12 06:03 | ECG_ITS ---
Measurements Intervals [place] Rate: 110 P: 65 VT: 132 QRS: 41 QRSD: 81 T: 81 QT: 320 QTc: 435 Interpretive Statements SINUS TACHYCARDIA ABNORMAL RHYTHM ECG COMPARED TO ECG 08/10/2022 22:15:12 HEART RATE IS ACCELERATED Electronically Signed On 04-12-2023 13:25:08 DONATION WORKER by George Rosario M.D.
--- NOTE | 2023-04-12 06:06 | ED.GENADULT ---
HPI - General Adult General Chief complaint: Unspecified Stated complaint: high glucose Time Seen by Provider: 04/12/23 02:08 History of Present Illness HPI narrative: patient is a 82-year-old gentleman who presents emergency department chief complaint of hyperglycemia. Patient has history of diabetes is just on metformin and notices blood sugars were running in the 500s. The patient states he feels very weak and run down. Related Data Home Medications Medication Instructions Recorded Confirmed cholecalciferol (vitamin D3) 50 50 mcg PO BID 08/11/22 02/23/23 mcg (2,000 unit) tablet diltiazem HCl 300 mg capsule,24 300 mg PO QAM 08/11/22 02/23/23 hr,extended release ferrous sulfate 325 mg (65 mg 325 mg PO DAILY 08/11/22 02/23/23 iron) tablet lisinopril 20 mg tablet 20 mg PO DAILY 08/11/22 02/23/23 metformin 500 mg tablet 500 mg PO BID 08/11/22 02/23/23 Allergies Allergy/AdvReac Type Severity Reaction Status Date / Time No Known Allergies Allergy Mild Verified 04/05/23 07:23 Review of Systems Review of Systems: A 10 system review of systems was completed on the patient and is negative except for what is stated in the HPI. Nursing and ancillary documentation was reviewed. [facility] Past Medical History Medical History Carotid artery disease History of heart attack Surgical History Surgical History History of cholecystectomy Social History Social History Smoking status: Former smoker Second hand tobacco smoke exposure: No Smoking end date: 05/13/1967 Alcohol intake: never Substance use: never Lack of Transportation: No Lack of Food: Never True Current Housing: I Have Housing Concerned About Future Housing: No Difficulty Paying Gas/Electric Bills: No Difficulty Paying for Meds: No Currently Unemployed: No Education: Decline to Answer Difficulty w/ Childcare or Family Care: No Spiritual care concerns: No Exam Narrative: GENERAL: Well-appearing, well-nourished, and in no acute distress. HEAD: Normocephalic, atraumatic. EYES: PERRLA and EOMI. ENT: Nares clear, no rhinorrhea or epistaxis. Mucous membranes moist. NECK: Supple. CHEST: Clear to auscultation. No respiratory distress. HEART: Regular rate and rhythm. No murmur heard. Normal peripheral pulses. ABDOMEN: Soft, nontender, nondistended, normal active bowel sounds. EXTREMITIES: Normal range of motion. No edema. SKIN: Warm, dry, no rash. NEURO: No focal deficits. Alert and oriented x3. PSYCH: Normal mood and affect. Course Vital Signs Vital signs: Vital Signs Temperature 36.8 C 04/12/23 00:33 Pulse Rate 113 H 04/12/23 00:33 Respiratory Rate 23 H 04/12/23 00:33 Blood Pressure 161/85 H 04/12/23 00:33 Pulse Oximetry 98 04/12/23 00:33 Oxygen Delivery Room Air 04/12/23 00:33 Temperature 36.8 C 04/12/23 00:33 Pulse Rate 100 04/12/23 05:22 Respiratory Rate 19 04/12/23 05:22 Blood Pressure 149/89 H 04/12/23 05:22 Pulse Oximetry 100 04/12/23 05:22 Oxygen Delivery Room Air 04/12/23 00:33 Medical Decision Making MDM Narrative Medical decision making narrative: differential diagnosis includes DKA, HHS, renal failure, UTI, intra-abdominal infection. Laboratory studies were obtained on the patient showed a white count of 14.8 electrolytes showed a potassium of 6.0 CO2 was 19 BUN was 94 creatinine is 4.5 glucose was 593. Patient received 2 L normal saline boluses and was given 10 units of IV insulin. Blood sugar has come down to 441 liver enzymes within normal beta hydroxybutyrate 0.61 urinalysis showed greater than 100 rbc's 6-[address] scan of the abdomen pelvis showed Possible wall thickening of the duodenum. Correlate for duodenitis/peptic ulcer di
--- NOTE | 2023-04-12 07:47 | PM.IMHP ---
H&P: HPI History of Present Illness Date/Time: 04/12/23 07:47 Chief Complaint: General weakness Narrative: patient is a 82-year-old gentleman with history of type 2 diabetes, CKD stage 3, chronic anemia, essential hypertension, present ED with a chief complaint of general weakness and uncontrolled glucose. Patient has been having general weakness a in past few more days, getting worse gradually. Patient has history of diabetes on metformin and and he notices blood sugars were running in the 500s.? Patient came to ED for evaluation, in the ED, patient was found have white count of 14.8 electrolytes showed a potassium of 6.0 CO2 was 19, BUN 94 creatinine 4.5, above baseline creatinine 1.5, BUN 28 on April 05, 2023 glucose was 593. In the ED, patient received 2 L normal saline boluses and was given 10 units of IV insulin.? Blood sugar has come down to 441 liver enzymes within normal beta hydroxybutyrate 0.61 urinalysis showed greater than 100 rbc's 6-[address] scan of the abdomen pelvis showed possible wall thickening of the duodenum suspecting duodenitis/peptic ulcer disease. Review of Systems Review of Systems: Patient is poor history, I am unable to review of system completely except above [facility] Past Medical History Medical History Carotid artery disease History of heart attack Surgical History Surgical History History of cholecystectomy Family History Family History (Updated 04/12/23 @ 14:16 by Jessica Henderson RN) Other Unknown family medical history Social History Social History Smoking packs per day: 2 Smoking cigarettes per day: 40.0 Years smoked: 30 Smoking pack-years: 60.00 Smoking status: Former smoker Tobacco type: cigarettes Second hand tobacco smoke exposure: No Smoking end date: 05/13/1967 Alcohol intake: never Substance use: never Lack of Transportation: No Lack of Food: Never True Current Housing: I Have Housing Concerned About Future Housing: No Difficulty Paying Gas/Electric Bills: No Difficulty Paying for Meds: No Currently Unemployed: No Education: High School Diploma/GED Difficulty w/ Childcare or Family Care: No Spiritual care concerns: No Meds Home Medications and Allergies Home Medications Medication Instructions Recorded Confirmed Type cholecalciferol (vitamin D3) 50 50 mcg PO BID 08/11/22 04/12/23 History mcg (2,000 unit) tablet diltiazem HCl 300 mg capsule,24 300 mg PO QAM 08/11/22 04/12/23 History hr,extended release lisinopril 20 mg tablet 20 mg PO DAILY 08/11/22 04/12/23 History metformin 500 mg tablet 1,000 mg PO BID 08/11/22 04/12/23 History Allergies Allergy/AdvReac Type Severity Reaction Status Date / Time No Known Allergies Allergy Mild Verified 04/05/23 07:23 Vital Signs Vital Signs - 24 hr 04/12/23 00:33 04/12/23 01:54 04/12/23 01:54 Temperature 98.3 F Pulse Rate 113 H 114 H 115 H Respiratory Rate 23 H 12 Blood Pressure 161/85 H 105/59 L Pulse Oximetry 98 98 Oxygen Delivery Room Air 04/12/23 03:00 04/12/23 05:22 04/12/23 06:39 Temperature Pulse Rate 110 H 100 129 H Respiratory Rate 14 19 14 Blood Pressure 154/78 H 149/89 H 143/78 H Pulse Oximetry 99 100 100 Oxygen Delivery Exam Narrative: GENERAL: Pleasant, in no acute distress. Well-nourished. - EYES: EOMI. Anicteric. - HENT: Dry mucous membranes. - LUNGS: Clear to auscultation bilaterally, no wheezing, rhonchi, or rales. - CARDIOVASCULAR: Regular rate and rhythm. No murmur. No JVD. - ABDOMEN: Soft, non-tender and non-distended. No palpable masses. - EXTREMITIES: No edema. Peripheral pulses 2+. Non-tender. - NEUROLOGIC: No focal neurological deficits. CN II-XII grossly intact. Move all extremities - PSYCH
[2023-04-12 08:08] LABS: Glucose Point of Care 271 mg/dl (65-105)
[2023-04-12] MEDS: INSULIN ASPART (*BKC) 100 UNITS/ML SUB-Q ×3 (08:17→23:29)
[2023-04-12] MEDS: PANTOPRAZOLE SODIUM IV 40 MG VIAL IV PUSH (08:18)
[2023-04-12] MEDS: cefTRIAXone 2 GM/NS 100 ML 2 GM/100 ML BAG IVPB ×2 (08:18→10:05)
[2023-04-12 09:24] LABS: Basophils Percent Auto 0.1 % (0.2-1.2); Hematocrit 31.5 % (42.0-52.0); Hemoglobin 9.5 g/dL (14.0-18.0); Immature Granulocyte Absolute 0.08 K/mm3 (0.00-0.031); Immature Granulocyte Percent A 0.7 % (0-0.5); Lymphocytes Absolute Auto 0.87 K/mm3 (0.9-3.2); Lymphocytes Percent Auto 7.6 % (18.3-44.2); Mean Corpuscular HGB Conc 30.2 g/dl (32-36); Mean Corpuscular Hemoglobin 28.6 pg (26-34); Mean Corpuscular Volume 94.9 fl (80-100); Mean Platelet Volume 10.7 fl (7.4-10.4); Monocytes Absolute Auto 0.6 K/mm3 (0.1-0.6); Monocytes Percent Auto 5.3 % (2.6-8.5); Neutrophils Absolute Auto 9.9 K/mm3 (1.3-6.7); Neutrophils Percent Auto 86.3 % (45.5-73.1); Platelet Count Result 273 k/mm3 (150-375); Red Blood Count 3.32 M/mm3 (4.6-6.20); Red Cell Distribution Width 12.5 % (11.5-14.5); White Blood Count 11.4 K/mm3 (4.5-10.0)
[2023-04-12 09:31] LABS: Anion Gap 15 mmol/L (8-16); Blood Urea Nitrogen 75 mg/dL (9-20); Carbon Dioxide 18 mmol/L (22-30); Chloride 119 mmol/L (98-107); Estimated CRCL calculation 14 ml/min; Estimated Glomerular Filt Rate 21; Glucose 283 mg/dL (65-110); Potassium 5.1 mmol/L (3.4-5.0); Sodium 152 mmol/L (137-145)
[2023-04-12] MEDS: INSULIN ASPART (*BKC) 100 UNITS/ML 6 UNITS SUB-Q (09:33)
[2023-04-12] MEDS: INSULIN GLARGINE (*BKC) 100 UNITS/ML 19 UNITS SUB-Q (09:33)
[2023-04-12] MEDS: ENOXAPARIN 30 MG/0.3 ML SYRINGE SUB-Q (09:34)
[2023-04-12] MEDS: dilTIAZem HCL CD 300 MG CAP.24HR PO (09:34)
[2023-04-12 09:36] LABS: Glucose Point of Care 275 mg/dl (65-105)
[2023-04-12 09:47] LABS: Iron 77 ug/dL (49-181)
[2023-04-12 09:57] LABS: Percent Iron Saturation 39 % (20-50)
[2023-04-12] MEDS: SODIUM CHLORIDE 0.9% IV 1,000 ML 125 ML IV CONT ×2 (10:05→18:19)
--- NOTE | 2023-04-12 10:23 | PC.NURSE ---
This RN attempted to feed pt breakfast and pt stated i can do it and if i don't bye bye . Pt tray has not been touched.
[2023-04-12] MEDS: SODIUM ZIRCONIUM CYCLOSILICATE 10 GM POWD.PACK PO (11:24)
--- NOTE | 2023-04-12 13:18 | ADMGEN ---
This patient, Leif Boyce, was admitted to IMU Room 206-02. Patient/family oriented to hospital policies and general routines including ID bracelet, bed and alarms, visiting hours, pain management, procedures, bathroom and other care routines, personal items, smoking policy, room service/diet, and visiting hours. Information on how to activate the Rapid Response Team has been discussed. Patient/Family are encouraged to report perceived risks to care and to ask questions if they do not understand what they are told or what they should do.
[2023-04-12 15:10] LABS: Glucose Point of Care 81 mg/dl (65-105)
[2023-04-12 15:48] LABS: Glucose Point of Care 85 mg/dl (65-105)
--- NOTE | 2023-04-12 16:36 | WPDGICN ---
Assessment and Plan Assessment and plan (1) Abnormal CT scan: Code(s): R93.89 - Abnormal findings on diagnostic imaging of other specified body structures Status: Acute Assessment and Plan: CT scan suggest possible thickening of the duodenum raising the question of duodenitis. Potentially this could contribute to anemia. Patient has no symptoms to suggest this. Agree with treating patient with Pepcid or pantoprazole. Stool Hemoccult will be obtained to will anticipate an EGD to assess more thoroughly. This does not appear to be is primary problem at present. (2) CKD (chronic kidney disease): Code(s): N18.9 - Chronic kidney disease, unspecified Status: Acute Assessment and Plan: Patient with chronic kidney disease. This potentially does contribute to his chronic anemia. Follow-up with Nephrology services advised. (3) Chronic anemia: Code(s): D64.9 - Anemia, unspecified Status: Acute Assessment and Plan: Patient with normochromic, normocytic anemia. This appears to be chronic. Will check iron studies. EGD is requested to exclude upper GI bleeding source. Stool Hemoccult suggested. GI Consult Note Consult date/time: 04/12/23 16:36 Reason for consult: Abnormal CT scan. HPI: Leif Boyce is a 82 year old male I am asked to see at the request of the hospitalist service. This elderly patient presented the emergency room because of generalized weakness. Was found to have renal insufficiency. With a BUN of 75, creatinine 3.5. A CT scan was performed which raise the question of duodenitis. Patient also has a history of mild anemia. No specific bleeding is noted. Patient denies any specific pain abdominal pain on questioning. Currently eating dinner without difficulty. CT scan performed will within the last week or 2 did not notice any duodenitis. For this reason I have been consulted. No obvious bleeding as reported by the patient. He reports his bowel habits are normal at this time. Review of Systems Review of Systems: Review of systems noncontributory. [facility] Past Medical History Medical History Carotid artery disease History of heart attack Surgical History Surgical History History of cholecystectomy Family History Family History (Updated 04/12/23 @ 14:16 by Jessica Henderson RN) Other Unknown family medical history Social History Social History Smoking packs per day: 2 Smoking cigarettes per day: 40.0 Years smoked: 30 Smoking pack-years: 60.00 Smoking status: Former smoker Tobacco type: cigarettes Second hand tobacco smoke exposure: No Smoking end date: 05/13/1967 Alcohol intake: never Substance use: never Lack of Transportation: No Lack of Food: Never True Current Housing: I Have Housing Concerned About Future Housing: No Difficulty Paying Gas/Electric Bills: No Difficulty Paying for Meds: No Currently Unemployed: No Education: High School Diploma/GED Difficulty w/ Childcare or Family Care: No Spiritual care concerns: No Meds Home Medications and Allergies Home Medications Medication Instructions Recorded Confirmed Type cholecalciferol (vitamin D3) 50 50 mcg PO BID 08/11/22 04/12/23 History mcg (2,000 unit) tablet diltiazem HCl 300 mg capsule,24 300 mg PO QAM 08/11/22 04/12/23 History hr,extended release lisinopril 20 mg tablet 20 mg PO DAILY 08/11/22 04/12/23 History metformin 500 mg tablet 1,000 mg PO BID 08/11/22 04/12/23 History Allergies Allergy/AdvReac Type Severity Reaction Status Date / Time No Known Allergies Allergy Mild Verified 04/05/23 07:23 Vital Signs Vital Signs - 24 hr 04/12/23 00:33 04/12/23 01:54 04/12/23 01:54 Temperature 98.3 F Pulse
[2023-04-12 16:42] LABS: Glucose Point of Care 226 mg/dl (65-105)
[2023-04-12 18:02] LABS: Iron 42 ug/dL (49-181)
[2023-04-12 18:11] LABS: Percent Iron Saturation 28 % (20-50)
[2023-04-12 22:11] LABS: Creatinine Urine 42.2 mg/dL; Sodium Urine Random 114 meq/L; Total Protein Urine Random 62 mg/dL; Ur Ttl Prot Creatinine Ratio 1.47 mg/mg (0-0.20); Urea Random Urine 584 MG/DL
[2023-04-12 23:24] LABS: Glucose Point of Care 223 mg/dl (65-105)
[2023-04-12 23:32] LABS: Eosinophil Urine None Seen % (None Seen)
[2023-04-12 23:33] LABS: Urine Eos QC 2nd Tech Confirmed
[2023-04-13] VITALS (15 sets, daily range): BP systolic 124–167; BP diastolic 69–83; PULSE 88–101; RESP 12–24; TEMP 36.3–37; O2SAT 97–100
[2023-04-13 04:50] LABS: Basophils Percent Auto 0.2 % (0.2-1.2); Eosinophils Percent Auto 0.3 % (0-4.4); Hematocrit 31.3 % (42.0-52.0); Hemoglobin 9.5 g/dL (14.0-18.0); Immature Granulocyte Absolute 0.04 K/mm3 (0.00-0.031); Immature Granulocyte Percent A 0.6 % (0-0.5); Lymphocytes Absolute Auto 0.95 K/mm3 (0.9-3.2); Lymphocytes Percent Auto 14.8 % (18.3-44.2); Mean Corpuscular HGB Conc 30.4 g/dl (32-36); Mean Corpuscular Hemoglobin 28.7 pg (26-34); Mean Corpuscular Volume 94.6 fl (80-100); Mean Platelet Volume 10.6 fl (7.4-10.4); Monocytes Absolute Auto 0.6 K/mm3 (0.1-0.6); Monocytes Percent Auto 9.3 % (2.6-8.5); Neutrophils Absolute Auto 4.8 K/mm3 (1.3-6.7); Neutrophils Percent Auto 74.8 % (45.5-73.1); Platelet Count Result 287 k/mm3 (150-375); Red Blood Count 3.31 M/mm3 (4.6-6.20); Red Cell Distribution Width 12.4 % (11.5-14.5); White Blood Count 6.4 K/mm3 (4.5-10.0)
[2023-04-13 05:04] LABS: INR 1.1; Prothrombin Time 14.2 Seconds (11.1-14.7)
[2023-04-13 05:05] LABS: Partial Thromboplastin Time 33.7 SECONDS (22.3-36.8)
[2023-04-13 05:08] LABS: Iron 61 ug/dL (49-181)
[2023-04-13 05:16] LABS: Alanine Aminotransferase 11 U/L (6-50); Albumin Level 3.7 g/dL (3.5-5.1); Alkaline Phosphatase 95 U/L (38-126); Anion Gap 12 mmol/L (8-16); Aspartate Amino Transferase 16 U/L (17-59); Bilirubin,Total 0.4 mg/dL (0.2-1.3); Blood Urea Nitrogen 54 mg/dL (9-20); Carbon Dioxide 22 mmol/L (22-30); Chloride 122 mmol/L (98-107); Creatine Kinase 35 U/L (55-170); Estimated CRCL calculation 18 ml/min; Estimated Glomerular Filt Rate 32; Glucose 97 mg/dL (65-110); Magnesium 1.5 mg/dL (1.6-2.3); Phosphorus 2.8 mg/dL (2.5-4.5); Potassium 4.7 mmol/L (3.4-5.0); Sodium 156 mmol/L (137-145)
[2023-04-13 05:17] LABS: Percent Iron Saturation 31 % (20-50)
[2023-04-13 07:46] LABS: Glucose Point of Care 88 mg/dl (65-105)
--- NOTE | 2023-04-13 08:58 | PM.IMPN ---
Progress Note: A&P Assessment and Plan (1) Sepsis: Code(s): A41.9 - Sepsis, unspecified organism Status: Acute Assessment and Plan: Patient has leukocytosis, tachycardia tachypnea UA shows pyuria and microscopic hematuria Possible resulting from UTI and possible gastroenteritis Follow-up blood culture urine culture Start ceftriaxone 1 g IV daily Continue fluid resuscitation 04/13: Urosepsis as most likely culprit. Continue with IV abx. Awaiting urine cultures, blood cultures with NGTD. (2) Acute on chronic kidney failure: Code(s): N17.9 - Acute kidney failure, unspecified; N18.9 - Chronic kidney disease, unspecified Status: Acute Assessment and Plan: Elevated BUN creatinine above baseline Likely secondary to uncontrolled diabetes, hypertension, sepsis, dehydration, UTI Hold lisinopril, avoid nephrotoxic medication Follow-up BMP Cr baseline appears to be 1.3-1.5 Consult label rewinder 04/13: Cr today is 2.4, down from 4.5 on admission. Green catheter is in place with clear, yellow urine. UOP 400 ml thus far today. (3) Acute hypernatremia: Code(s): E87.0 - Hyperosmolality and hypernatremia Status: Acute Assessment and Plan: Acute hypernatremia after correction of hyperglycemia. Na 156 nephrology consulted, rec's appreciated. Fluids switched to D51/2 NS at 75 ml per hour Repeat BMP this afternoon (4) Uncontrolled type 2 diabetes mellitus: Status: Acute Assessment and Plan: Uncontrolled type 2 diabetes Patient is on metformin only Given patient's age and renal failure stage IV Discontinue metformin Start Lantus 9 units am And insulin sliding scale a.c. q.h.s. Optimize medications for better glucose control Received fluid resuscitation Continue normal saline IV and 125 mL/hour 04/13: Receiving 10 units of lantus daily and SSI. Blood glucose is much improved. Now with hypernatremia of 157. IV fluids switched to D 5 1/4 NS at 75 ml per hour. Repeating BMP this afternoon. (5) Acute hyperkalemia: Code(s): E87.5 - Hyperkalemia Status: Acute Assessment and Plan: K+ on admission was 6.0. He has received lokoma as well as treatment for hyperglycemia K+ 4.7 today This is what prompted IMU admission. 04/13: Transfer to med-surg (6) Chronic anemia: Code(s): D64.9 - Anemia, unspecified Status: Acute Assessment and Plan: Chronic anemia, CT suggest possible duodenitis and peptic ulcer Start Protonix 40 mg IV Continue ferrous sulfate p.o. Follow iron panel, ferritin, guaiac Consult GI 04/13: EGD preformed today and findings were acute duodenal ulcers with stigmata of recent bleeding. Multiple biopsies were taken. GI recommends PPI. Increased PPI to BID. Hemoglobin stable at 9 (7) Essential hypertension: Code(s): I10 - Essential (primary) hypertension Status: Acute Assessment and Plan: Continue Cardizem 300 mg daily p.o. Hold lisinopril because of worsening kidney function 04/13: Blood pressure reviewed. (8) UTI (urinary tract infection): Code(s): N39.0 - Urinary tract infection, site not specified Status: Acute Assessment and Plan: UA shows pyuria, Start ceftriaxone IV awaiting urine culture blood culture with NGTD 04/13: Urine is clear, yellow today with green catheter. Downtrending leukocytosis. Afebrile. Plan Feeding:DM diet with supplements Analgesia:Tylenol Thromboembolic prophylaxis: Lovenox Ulcer prophylaxis: Glycemic control: Bowel regimen: miralax prn Lines: PIV Antibiotics: Rocehpin Disposition: Home with family when medically ready. Subjective Date/time seen: 04/13/23 08:58 Interval history: HPI obtained from the chart, This is a 82-year-old gentleman with history of type 2 diabetes, CKD stage 3, chronic anemia, essential hypertension, dementia who present ED with a chief complaint of general weakness and uncontrolled glucose.? Pat
--- NOTE | 2023-04-13 09:00 | WPDANESEPPF ---
Anes - Initial Pre Proc Eval Procedure: Operation Date: 04/13/23 09:00 Proposed Procedures p Esophagogastroduodenoscopy - Malick Lopez MD Date/Time: 04/13/23 09:00 Surgeon: Frank Piña MD Pre Op Diagnosis: Hyperglycemia/Hyperkalemia/SYED Patient Data Age: 82 Gender: M Height: 1.8 m Weight: 56.7 kg Last Vital Signs Temp 36.8 C 04/13/23 08:00 Pulse 91 04/13/23 08:00 Resp 20 04/13/23 08:00 BP 157/73 H 04/13/23 08:00 Pulse Ox 100 04/13/23 08:00 O2 Del Method Room Air 04/13/23 04:00 Allergies Allergy/AdvReac Type Severity Reaction Status Date / Time No Known Allergies Allergy Mild Verified 04/05/23 07:23 Home Medications Medication Instructions Recorded Confirmed Type cholecalciferol (vitamin D3) 50 50 mcg PO BID 08/11/22 04/12/23 History mcg (2,000 unit) tablet diltiazem HCl 300 mg capsule,24 300 mg PO QAM 08/11/22 04/12/23 History hr,extended release lisinopril 20 mg tablet 20 mg PO DAILY 08/11/22 04/12/23 History metformin 500 mg tablet 1,000 mg PO BID 08/11/22 04/12/23 History Laboratory Tests 04/12/23 04/12/23 04/12/23 09:03 09:32 11:21 WBC 11.4 H K/mm3 (4.5-10.0) RBC 3.32 L M/mm3 (4.6-6.20) Hgb 9.5 L g/dL (14.0-18.0) Hct 31.5 L % (42.0-52.0) MCV 94.9 fl (80-100) MCH 28.6 pg (26-34) MCHC 30.2 L g/dl (32-36) RDW 12.5 % (11.5-14.5) Plt Count 273 k/mm3 (150-375) MPV 10.7 H fl (7.4-10.4) Immature Gran % (Auto) 0.7 H % (0-0.5) Neut % (Auto) 86.3 H % (45.5-73.1) Lymph % (Auto) 7.6 L % (18.3-44.2) [place] % (Auto) 5.3 % (2.6-8.5) Eos % (Auto) 0.0 % (0-4.4) Baso % (Auto) 0.1 L % (0.2-1.2) Lymph # (Auto) 0.87 L K/mm3 (0.9-3.2) [place] # (Auto) 0.6 K/mm3 (0.1-0.6) Eos # (Auto) 0.0 K/mm3 (0-0.3) Baso # (Auto) 0.0 K/mm3 (0.0-0.1) Abs Immat Gran (auto) 0.08 H K/mm3 (0.00-0.031) Absolute Neuts (auto) 9.9 H K/mm3 (1.3-6.7) Absolute Nucleated RBC 0.0 K/mm3 (0.0-0.012) Nucleated RBC % 0.0 % (0.0-0.2) PT INR APTT Sodium 152 H mmol/L (137-145) Potassium 5.1 H mmol/L (3.4-5.0) Chloride 119 H mmol/L (98-107) Carbon Dioxide 18 L mmol/L (22-30) Anion Gap 15 mmol/L (8-16) BUN 75 H D mg/dL (9-20) Creatinine 3.50 H mg/dL (0.7-1.3) Estim Creat Clear Calc 14 ml/min Estimated GFR 21 L (59 - ) Glucose 283 H mg/dL (65-110) POC Capillary Glucose 275 H mg/dl 226 H mg/dl (65-105) (65-105) Calcium 9.0 mg/dL (8.4-10.2) Phosphorus Magnesium Iron 77 ug/dL (49-181) TIBC 196 L ug/dL (265-497) % Saturation 39 % (20-50) Ferritin 444.00 H ng/mL (11.1-264) Total Bilirubin AST ALT Alkaline Phosphatase Total Creatine Kinase Total Protein Albumin Urine Eosinophils U Random Total Protein Ur Random Sodium Ur Random Urea Urine Creatinine Protein/Creat Ratio 2 04/12/23 04/12/23 04/12/23 15:07 15:41 17:31 WBC RBC Hgb Hct MCV MCH MCHC RDW Plt Count MPV Immature Gran % (Auto) Neut % (Auto) Lymph % (Auto) [place] % (Auto) Eos % (Auto) Baso % (Auto) Lymph # (Auto) [place] # (Auto) Eos # (Auto) Baso # (Auto) Abs Immat Gran (auto) Absolute Neuts (auto)
[2023-04-13] MEDS: LACTATED RINGERS 1,000 ML 150 ML IV CONT (09:30)
--- NOTE | 2023-04-13 11:15 | PM.CNNEP ---
Assessment and Plan Assessment and plan (1) Acute kidney injury: Code(s): N17.9 - Acute kidney failure, unspecified Status: Acute Assessment and Plan: suspect due to volume depletion/dehydration +/- infection (UTI) recent imaging suggest obstruction (but straight catheterization in ER not reflective of this) interestingly, did receive IV contrast on 04/05 with prior ER visit improvement in renal function noted with just IVF resuscitation evaluation to date noted: urine eosinophils negative urine electrolytes non-prerenal CPK low CT on 04/12 with there is no evidence of renal or ureteral calculi. The kidneys and the ureters are nondilated CT on 04/05 with Marked enlargement of the prostate with circumferential wall thickening of the urinary bladder, likely due to chronic outlet obstruction follow trend of repeat labs and UOP (2) Stage 3a chronic kidney disease: Code(s): N18.31 - Chronic kidney disease, stage 3a Status: Acute Assessment and Plan: baseline creatinine runs around 1.3 - 1.5mg/dl this causes him to fluctuate between CKD stage 2 and stage 3A likely due to hypertension, diabetes, vascular disease and age-related change (3) Hypernatremia: Code(s): E87.0 - Hyperosmolality and hypernatremia Status: Acute Assessment and Plan: as noted by recent labs likely due to free water deficit from poor oral hydration likely secondary to aggressive normal saline IVFs given in ER along with maitenance IVFs as well as hyperglycemia admission sodium of 143 with a glucose 593 corrects to a sodium of ~ 155 switch IVF to D5 1/2NS to provide free water and volume repeat labs later today to assess for correction follow sodium level (4) Hyperkalemia: Code(s): E87.5 - Hyperkalemia Status: Acute Assessment and Plan: as noted by admission labs likely due to SYED/ARF + JUS-I use corrected with medical management follow repeat K+ levels (5) UTI (urinary tract infection): Code(s): N39.0 - Urinary tract infection, site not specified Status: Acute Assessment and Plan: admission UA highly suggestive follow blood/urine culture data on antibiotics (6) Chronic anemia: Code(s): D64.9 - Anemia, unspecified Status: Chronic Assessment and Plan: admission CT suggests possible duodenitis and peptic ulcer underlying CKD likely playing a role GI recommendations noted anemia studies noted s/p EGD this AM: acute duodenal ulcers with stigmata of recent bleeding... on PPI bid follow H/H (7) Essential hypertension: Code(s): I10 - Essential (primary) hypertension Status: Chronic Assessment and Plan: reasonable control but fluctuating holding JUS-I at this time due to #1 follow trend of hemodynamics (8) Uncontrolled type 2 diabetes mellitus: Status: Chronic Assessment and Plan: as noted by admission glucose of 593 follow-up on A1c follow accu-cheks glycemic control per hospitalists Long extensive discussion ( greater than 20 min) with the patient as well as his extended family at bedside regarding the above medical issues/ problems that led to his admission and the current interventions / therapy initiated to hopefully stabilize / improved these same issues. They all seem to voice understanding and were appreciative. I will continue to follow the patient with you while remains hospitalized to make further recommendations as needed. Thank you for allowing me to participate in the care of this patient. History of Present Illness Reason for Consult Consult date: 04/13/23 Reason for consult: acute renal failure (on chronic kidney disease) Chief Complaint Chief complaint: Hyperglycemia/Hyperkalemia/SYED History of Present Illness Narrative: A great majority of the history was obtained from review of the electronic medical records as well as
--- NOTE | 2023-04-13 11:15 | P.CONNP_ITS ---
Assessment and Plan Assessment and plan (1) Acute kidney injury: Code(s): N17.9 - Acute kidney failure, unspecified Status: Acute Assessment and Plan: * suspect due to volume depletion/dehydration +/- infection (UTI) * recent imaging suggest obstruction (but straight catheterization in ER not reflective of this) * interestingly, did receive IV contrast on 04/05 with prior ER visit * improvement in renal function noted with just IVF resuscitation * evaluation to date noted: * urine eosinophils negative * urine electrolytes non-prerenal * CPK low * CT on 04/12 with there is no evidence of renal or ureteral calculi. The kidneys and the ureters are nondilated * CT on 04/05 with Marked enlargement of the prostate with circumferential wall thickening of the urinary bladder, likely due to chronic outlet o bstruction * follow trend of repeat labs and UOP (2) Stage 3a chronic kidney disease: Code(s): N18.31 - Chronic kidney disease, stage 3a Status: Acute Assessment and Plan: * baseline creatinine runs around 1.3 - 1.5mg/dl * this causes him to fluctuate between CKD stage 2 and stage 3A * likely due to hypertension, diabetes, vascular disease and age-related change (3) Hypernatremia: Code(s): E87.0 - Hyperosmolality and hypernatremia Status: Acute Assessment and Plan: * as noted by recent labs * likely due to free water deficit from poor oral hydration * likely secondary to aggressive normal saline IVFs given in ER along with maitenance IVFs as well as hyperglycemia * admission sodium of 143 with a glucose 593 corrects to a sodium of ~ 155 * switch IVF to D5 1/2NS to provide free water and volume * repeat labs later today to assess for correction * follow sodium level (4) Hyperkalemia: Code(s): E87.5 - Hyperkalemia Status: Acute Assessment and Plan: * as noted by admission labs * likely due to SYED/ARF + JUS-I use * corrected with medical management * follow repeat K+ levels (5) UTI (urinary tract infection): Code(s): N39.0 - Urinary tract infection, site not specified Status: Acute Assessment and Plan: * admission UA highly suggestive * follow blood/urine culture data * on antibiotics (6) Chronic anemia: Code(s): D64.9 - Anemia, unspecified Status: Chronic Assessment and Plan: * admission CT suggests possible duodenitis and peptic ulcer * underlying CKD likely playing a role * GI recommendations noted * anemia studies noted * s/p EGD this AM: * acute duodenal ulcers with stigmata of recent bleeding... * on PPI bid * follow H/H (7) Essential hypertension: Code(s): I10 - Essential (primary) hypertension Status: Chronic Assessment and Plan: * reasonable control but fluctuating * holding JUS-I at this time due to #1 * follow trend of hemodynamics (8) Uncontrolled type 2 diabetes mellitus: Status: Chronic Assessment and Plan: * as noted by admission glucose of 593 * follow-up on A1c * follow accu-cheks * glycemic control per hospitalists Long extensive discussion ( greater than 20 min) with the patient as well as his extended family at bedside regarding the above medical issues/ problems that led to his admission and the current interventions / therapy initiated to hopefully stabilize / improved these same issues. They all seem to voice understanding and were appreciative. I will continue to follow the patient with you while re
[2023-04-13 11:42] LABS: Glucose Point of Care 91 mg/dl (65-105)
[2023-04-13] MEDS: DEXTROSE 5%/0.45% SOD CHL 1,000 ML 75 ML IV CONT (11:49)
[2023-04-13] MEDS: cefTRIAXone 2 GM/NS 100 ML 2 GM/100 ML BAG IVPB (11:50)
[2023-04-13] MEDS: ENOXAPARIN 30 MG/0.3 ML SYRINGE SUB-Q (11:50)
[2023-04-13] MEDS: dilTIAZem HCL CD 300 MG CAP.24HR PO (11:50)
[2023-04-13 15:13] LABS: Albumin Level 3.5 g/dL (3.5-5.1); Anion Gap 15 mmol/L (8-16); Blood Urea Nitrogen 47 mg/dL (9-20); Calcium 8.4 mg/dL (8.4-10.2); Carbon Dioxide 14 mmol/L (22-30); Chloride 121 mmol/L (98-107); Estimated CRCL calculation 22 ml/min; Estimated Glomerular Filt Rate 39; Glucose 235 mg/dL (65-110); Potassium 5.1 mmol/L (3.4-5.0); Sodium 150 mmol/L (137-145)
[2023-04-13] MEDS: SODIUM CHLORIDE 0.45% 1,000 ML 75 ML IV CONT (16:07)
[2023-04-13] MEDS: CHOLECALCIFEROL 1,000 UNITS TABLET 2000 UNITS PO (16:09)
[2023-04-13] MEDS: MAGNESIUM OXIDE 400 MG TABLET PO (16:09)
[2023-04-13] MEDS: SODIUM ZIRCONIUM CYCLOSILICATE 10 GM POWD.PACK PO (16:09)
[2023-04-13 16:18] LABS: Glucose Point of Care 250 mg/dl (65-105)
--- NOTE | 2023-04-13 19:19 | PC.NURSE ---
This patient, Leif Boyce, was transferred to [ [id number]] on 04/13/23 at 1919. Personal belongings sent with patient. Report given to [Sonja CRUZ ]. Appropriate documentation sent with patient.
[2023-04-13] MEDS: PANTOPRAZOLE 40 MG TABLET PO (20:22)
[2023-04-13] MEDS: INSULIN ASPART (*BKC) 100 UNITS/ML SUB-Q (20:32)
[2023-04-13 20:34] LABS: Glucose Point of Care 311 mg/dl (65-105)
[2023-04-13 22:25] LABS: Anion Gap 11 mmol/L (8-16); Blood Urea Nitrogen 41 mg/dL (9-20); Calcium 8.6 mg/dL (8.4-10.2); Carbon Dioxide 21 mmol/L (22-30); Chloride 111 mmol/L (98-107); Estimated CRCL calculation 23 ml/min; Estimated Glomerular Filt Rate 42; Glucose 296 mg/dL (65-110); Potassium 4.2 mmol/L (3.4-5.0); Sodium 143 mmol/L (137-145)
[2023-04-14 07:06] LABS: Eosinophils Absolute Auto 0.1 K/mm3 (0-0.3); Eosinophils Percent Auto 1.2 % (0-4.4); Hematocrit 29.6 % (42.0-52.0); Hemoglobin 8.7 g/dL (14.0-18.0); Immature Granulocyte Absolute 0.03 K/mm3 (0.00-0.031); Immature Granulocyte Percent A 0.5 % (0-0.5); Lymphocytes Absolute Auto 1.47 K/mm3 (0.9-3.2); Lymphocytes Percent Auto 25.5 % (18.3-44.2); Mean Corpuscular HGB Conc 29.4 g/dl (32-36); Mean Corpuscular Hemoglobin 28.1 pg (26-34); Mean Corpuscular Volume 95.5 fl (80-100); Mean Platelet Volume 10.7 fl (7.4-10.4); Monocytes Absolute Auto 0.4 K/mm3 (0.1-0.6); Monocytes Percent Auto 6.1 % (2.6-8.5); Neutrophils Absolute Auto 3.9 K/mm3 (1.3-6.7); Neutrophils Percent Auto 66.7 % (45.5-73.1); Platelet Count Result 320 k/mm3 (150-375); Red Cell Distribution Width 12.6 % (11.5-14.5); White Blood Count 5.8 K/mm3 (4.5-10.0)
[2023-04-14 07:21] LABS: Alanine Aminotransferase 10 U/L (6-50); Albumin Level 3.5 g/dL (3.5-5.1); Alkaline Phosphatase 90 U/L (38-126); Anion Gap 12 mmol/L (8-16); Aspartate Amino Transferase 16 U/L (17-59); Bilirubin,Total 0.4 mg/dL (0.2-1.3); Blood Urea Nitrogen 36 mg/dL (9-20); Calcium 8.6 mg/dL (8.4-10.2); Carbon Dioxide 21 mmol/L (22-30); Chloride 112 mmol/L (98-107); Estimated CRCL calculation 25 ml/min; Estimated Glomerular Filt Rate 47; Glucose 192 mg/dL (65-110); Potassium 4.3 mmol/L (3.4-5.0); Sodium 145 mmol/L (137-145)
--- NOTE | 2023-04-14 07:59 | PM.IMPN ---
Progress Note: A&P Assessment and Plan (1) Sepsis: Code(s): A41.9 - Sepsis, unspecified organism Status: Acute Assessment and Plan: Patient has leukocytosis, tachycardia tachypnea UA shows pyuria and microscopic hematuria Possible resulting from UTI and possible gastroenteritis Follow-up blood culture urine culture Start ceftriaxone 1 g IV daily Continue fluid resuscitation 04/13: Urosepsis as most likely culprit. Continue with IV abx. Awaiting urine cultures, blood cultures with NGTD. 04/14: Urine culture is growing pseudomonas and 1/2 blood cultures with gram negative bacilli isolated. Stop rocephin and add cefepime 2 gram. (2) Acute on chronic kidney failure: Code(s): N17.9 - Acute kidney failure, unspecified; N18.9 - Chronic kidney disease, unspecified Status: Acute Assessment and Plan: Elevated BUN creatinine above baseline Likely secondary to uncontrolled diabetes, hypertension, sepsis, dehydration, UTI Hold lisinopril, avoid nephrotoxic medication Follow-up BMP Cr baseline appears to be 1.3-1.5 Consult special delivery messenger 04/13: Cr today is 2.4, down from 4.5 on admission. Green catheter is in place with clear, yellow urine. UOP 400 ml thus far today. 04/14: Cr continues to downtrend. Today it is 1.70. UOP of 2350 ml in the last 24 hours. (3) Acute hypernatremia: Code(s): E87.0 - Hyperosmolality and hypernatremia Status: Acute Assessment and Plan: Acute hypernatremia after correction of hyperglycemia. Na 156 nephrology consulted, rec's appreciated. Fluids switched to 1/2 NS at 75 ml per hour Repeat BMP this afternoon 04/14: Na+ normalized at 145. (4) Uncontrolled type 2 diabetes mellitus: Status: Chronic Assessment and Plan: Uncontrolled type 2 diabetes Patient is on metformin only Given patient's age and renal failure stage IV Discontinue metformin Start Lantus 10 units am And insulin sliding scale a.c. q.h.s. Optimize medications for better glucose control Received fluid resuscitation Continue normal saline IV and 125 mL/hour 04/13: Receiving 10 units of lantus daily and SSI. Blood glucose is much improved. Now with hypernatremia of 157. IV fluids switched to 1/2 NS at 75 ml per hour. Repeating BMP this afternoon. 04/14: No A1C on file. Will add on to am labs. Blood glucose is still not within desired range. Will increase night insulin from 10 units to 12 units. (5) Acute hyperkalemia: Code(s): E87.5 - Hyperkalemia Status: Acute Assessment and Plan: K+ on admission was 6.0. He has received lokoma as well as treatment for hyperglycemia K+ 4.7 today This is what prompted IMU admission. 04/13: Transfer to med-surg 04/14: K+ 4.3 on am labs. Holding lokoma again. (6) Chronic anemia: Code(s): D64.9 - Anemia, unspecified Status: Chronic Assessment and Plan: Chronic anemia, CT suggest possible duodenitis and peptic ulcer Start Protonix 40 mg IV Continue ferrous sulfate p.o. Follow iron panel, ferritin, guaiac Consult GI 04/13: EGD preformed today and findings were acute duodenal ulcers with stigmata of recent bleeding. Multiple biopsies were taken. GI recommends PPI. Increased PPI to BID. Hemoglobin stable at 9 04/14: Hgb 8.7. (7) Essential hypertension: Code(s): I10 - Essential (primary) hypertension Status: Chronic Assessment and Plan: Continue Cardizem 300 mg daily p.o. Hold lisinopril because of worsening kidney function 04/13: Blood pressure reviewed. 04/14: Blood pressures reviewed. (8) UTI (urinary tract infection): Code(s): N39.0 - Urinary tract infection, site not specified Status: Acute Assessment and Plan: UA shows pyuria, Start ceftriaxone IV awaiting urine culture blood culture with NGTD 04/13: Urine is clear, yellow today with green catheter. Downtrending leukocytosis. Afebrile. 04/14: Urine culture with pseudomonas. Stop Rocephin and sta
[2023-04-14 08:00] VITALS: BP 134/62; PULSE 95; RESP 16; TEMP 30.4; O2SAT 99
[2023-04-14 08:23] LABS: Glucose Point of Care 170 mg/dl (65-105)
[2023-04-14] MEDS: SODIUM BICARBONATE TAB 650 MG TABLET PO ×2 (09:43→17:48)
[2023-04-14] MEDS: CEFEPIME 2 GM/NS 50 ML 2 GM/50 ML BAG IVPB (09:43)
[2023-04-14] MEDS: CHOLECALCIFEROL 1,000 UNITS TABLET 2000 UNITS PO ×2 (09:43→17:48)
[2023-04-14] MEDS: PANTOPRAZOLE 40 MG TABLET PO ×2 (09:43→21:18)
[2023-04-14] MEDS: dilTIAZem HCL CD 300 MG CAP.24HR PO (09:43)
[2023-04-14] MEDS: MAGNESIUM OXIDE 400 MG TABLET PO (09:43)
[2023-04-14] MEDS: SODIUM CHLORIDE 0.45% 1,000 ML 75 ML IV CONT (09:44)
[2023-04-14] MEDS: ENOXAPARIN 30 MG/0.3 ML SYRINGE SUB-Q (09:44)
[2023-04-14] MEDS: INSULIN GLARGINE (*BKC) 100 UNITS/ML 12 UNITS SUB-Q (09:45)
[2023-04-14 10:25] LABS: Hemoglobin A1C 5.6 % (<5.7)
--- NOTE | 2023-04-14 11:42 | PM.PNNEP ---
Progress Note: A&P Assessment and Plan (1) Acute kidney injury: Code(s): N17.9 - Acute kidney failure, unspecified Status: Acute Assessment and Plan: improving suspect due to volume depletion/dehydration +/- infection/sepsis (UTI) recent imaging suggest obstruction (but straight catheterization in ER not reflective of this) interestingly, did receive IV contrast on 04/05 with prior ER visit improvement in renal function noted with just IVF resuscitation evaluation to date noted: urine eosinophils negative urine electrolytes non-prerenal CPK low CT on 04/12 with there is no evidence of renal or ureteral calculi. The kidneys and the ureters are nondilated CT on 04/05 with marked enlargement of the prostate with circumferential wall thickening of the urinary bladder, likely due to chronic outlet obstruction follow trend of repeat labs and UOP (2) Stage 3a chronic kidney disease: Code(s): N18.31 - Chronic kidney disease, stage 3a Status: Acute Assessment and Plan: baseline creatinine runs around 1.3 - 1.5mg/dl this causes him to fluctuate between CKD stage 2 and stage 3A likely due to hypertension, diabetes, vascular disease and age-related change (3) Sepsis: Code(s): A41.9 - Sepsis, unspecified organism Status: Acute Assessment and Plan: suspect urosepsis urine culture with Pseudomonas blood culture with GNB on antibiotics follow repeat cultures (4) Hypernatremia: Code(s): E87.0 - Hyperosmolality and hypernatremia Status: Acute Assessment and Plan: improvement noted due to free water deficit from poor oral hydration and likely secondary to aggressive normal saline IVFs given in ER along with maintenance IVFs as well as hyperglycemia admission sodium of 143 with a glucose 593 corrects to a sodium of ~ 155 on 1/2NS IVFs to provide free water and volume follow sodium level (5) Hyperkalemia: Code(s): E87.5 - Hyperkalemia Status: Acute Assessment and Plan: resolved as noted by admission labs likely due to SYED/ARF + JUS-I use corrected with medical management follow repeat K+ levels (6) Chronic anemia: Code(s): D64.9 - Anemia, unspecified Status: Chronic Assessment and Plan: admission CT suggests possible duodenitis and peptic ulcer underlying CKD likely playing a role GI following anemia studies noted s/p EGD (on 04/13): acute duodenal ulcers with stigmata of recent bleeding... on PPI bid follow H/H (7) Essential hypertension: Code(s): I10 - Essential (primary) hypertension Status: Chronic Assessment and Plan: reasonable control but fluctuating holding JUS-I at this time due to #1 follow trend of hemodynamics (8) Uncontrolled type 2 diabetes mellitus: Status: Chronic Assessment and Plan: as noted by admission glucose of 593 follow accu-cheks glycemic control per hospitalists Will continue to follow. Subjective Date/time seen: 04/14/23 11:42 Interval history: Follow-up for acute kidney injury/acute renal failure on chronic kidney disease and hypernatremia. Sodium level has normalized and kidney function/creatinine continues to improve with current interventions/therapy; antibiotics adjusted due to positive blood and urine cultures; mentation seems stable at the time of my visit; no apparent distress noted; no issues/events overnight or earlier this morning. Exam Narrative: General: thin and elderly male in NAD Heart: normal S1 and S2; no rub Lungs: clear to auscultation Abdomen: soft, nontender, nondistended, positive bowel sounds Extremities: no cyanosis or clubbing; no edema Skin: warm and dry Objective Data Vital Signs Vital Signs: Vital Signs Temp Pulse Resp BP Pulse Ox 04/14/23 11:36 96.5 F L 86 15 132/64 100 04/14/23 08:00 86.8 F L 95 16 1
--- NOTE | 2023-04-14 11:42 | P.PNNP_ITS ---
Progress Note: A&P Assessment and Plan (1) Acute kidney injury: Code(s): N17.9 - Acute kidney failure, unspecified Status: Acute Assessment and Plan: * improving * suspect due to volume depletion/dehydration +/- infection/sepsis (UTI) * recent imaging suggest obstruction (but straight catheterization in ER not reflective of this) * interestingly, did receive IV contrast on 04/05 with prior ER visit * improvement in renal function noted with just IVF resuscitation * evaluation to date noted: * urine eosinophils negative * urine electrolytes non-prerenal * CPK low * CT on 04/12 with there is no evidence of renal or ureteral calculi. The kidneys and the ureters are nondilated * CT on 04/05 with marked enlargement of the prostate with circumferential wall thickening of the urinary bladder, likely due to chronic outlet obstruction * follow trend of repeat labs and UOP (2) Stage 3a chronic kidney disease: Code(s): N18.31 - Chronic kidney disease, stage 3a Status: Acute Assessment and Plan: * baseline creatinine runs around 1.3 - 1.5mg/dl * this causes him to fluctuate between CKD stage 2 and stage 3A * likely due to hypertension, diabetes, vascular disease and age-related change (3) Sepsis: Code(s): A41.9 - Sepsis, unspecified organism Status: Acute Assessment and Plan: * suspect urosepsis * urine culture with Pseudomonas * blood culture with GNB * on antibiotics * follow repeat cultures (4) Hypernatremia: Code(s): E87.0 - Hyperosmolality and hypernatremia Status: Acute Assessment and Plan: * improvement noted * due to free water deficit from poor oral hydration and likely secondary to aggressive normal saline IVFs given in ER along with maintenance IVFs as well as hyperglycemia * admission sodium of 143 with a glucose 593 corrects to a sodium of ~ 155 * on 1/2NS IVFs to provide free water and volume * follow sodium level (5) Hyperkalemia: Code(s): E87.5 - Hyperkalemia Status: Acute Assessment and Plan: * resolved * as noted by admission labs * likely due to SYED/ARF + JUS-I use * corrected with medical management * follow repeat K+ levels (6) Chronic anemia: Code(s): D64.9 - Anemia, unspecified Status: Chronic Assessment and Plan: * admission CT suggests possible duodenitis and peptic ulcer * underlying CKD likely playing a role * GI following * anemia studies noted * s/p EGD (on 04/13): * acute duodenal ulcers with stigmata of recent bleeding... * on PPI bid * follow H/H (7) Essential hypertension: Code(s): I10 - Essential (primary) hypertension Status: Chronic Assessment and Plan: * reasonable control but fluctuating * holding JUS-I at this time due to #1 * follow trend of hemodynamics (8) Uncontrolled type 2 diabetes mellitus: Status: Chronic Assessment and Plan: * as noted by admission glucose of 593 * follow accu-cheks * glycemic control per hospitalists Will continue to follow. Subjective Date/time seen: 04/14/23 11:42 Interval history: Follow-up for acute kidney injury/acute renal failure on chronic kidney disease and hypernatremia. Sodium level has normalized and kidney function/creatinine continues to improve with current interventions/therapy; antibiotics adjusted due to positive blood and urine cultures; mentation seems stable at the time of my visit; no appa
[2023-04-14 12:13] LABS: Glucose Point of Care 195 mg/dl (65-105)
[2023-04-14 15:56] VITALS: BP 132/64; PULSE 86; RESP 95; TEMP 35.8; O2SAT 100
[2023-04-14 17:47] LABS: Glucose Point of Care 290 mg/dl (65-105)
[2023-04-14] MEDS: INSULIN ASPART (*BKC) 100 UNITS/ML SUB-Q ×2 (17:49→21:17)
[2023-04-14 20:00] VITALS: O2SAT 100
[2023-04-14 21:14] LABS: Glucose Point of Care 319 mg/dl (65-105)
[2023-04-14 21:18] VITALS: BP 133/69; PULSE 99; RESP 20; TEMP 36.6; O2SAT 100
[2023-04-15 05:04] VITALS: BP 144/76; PULSE 98; RESP 20; TEMP 36.6; O2SAT 99
[2023-04-15] MEDS: SODIUM CHLORIDE 0.45% 1,000 ML 75 ML IV CONT (05:13)
[2023-04-15 06:49] LABS: Basophils Percent Auto 0.1 % (0.2-1.2); Eosinophils Absolute Auto 0.1 K/mm3 (0-0.3); Eosinophils Percent Auto 1.2 % (0-4.4); Hematocrit 27.4 % (42.0-52.0); Hemoglobin 8.4 g/dL (14.0-18.0); Immature Granulocyte Absolute 0.03 K/mm3 (0.00-0.031); Immature Granulocyte Percent A 0.4 % (0-0.5); Lymphocytes Absolute Auto 1.65 K/mm3 (0.9-3.2); Lymphocytes Percent Auto 24.6 % (18.3-44.2); Mean Corpuscular HGB Conc 30.7 g/dl (32-36); Mean Corpuscular Hemoglobin 28.9 pg (26-34); Mean Corpuscular Volume 94.2 fl (80-100); Mean Platelet Volume 10.9 fl (7.4-10.4); Monocytes Absolute Auto 0.3 K/mm3 (0.1-0.6); Neutrophils Absolute Auto 4.7 K/mm3 (1.3-6.7); Neutrophils Percent Auto 69.7 % (45.5-73.1); Platelet Count Result 348 k/mm3 (150-375); Red Blood Count 2.91 M/mm3 (4.6-6.20); Red Cell Distribution Width 12.3 % (11.5-14.5); White Blood Count 6.7 K/mm3 (4.5-10.0)
[2023-04-15 07:02] LABS: Alanine Aminotransferase 9 U/L (6-50); Albumin Level 3.6 g/dL (3.5-5.1); Alkaline Phosphatase 91 U/L (38-126); Anion Gap 9 mmol/L (8-16); Aspartate Amino Transferase 17 U/L (17-59); Bilirubin,Total 0.5 mg/dL (0.2-1.3); Blood Urea Nitrogen 42 mg/dL (9-20); Calcium 8.7 mg/dL (8.4-10.2); Carbon Dioxide 21 mmol/L (22-30); Chloride 111 mmol/L (98-107); Estimated CRCL calculation 30 ml/min; Estimated Glomerular Filt Rate 51; Glucose 234 mg/dL (65-110); Potassium 4.8 mmol/L (3.4-5.0); Sodium 141 mmol/L (137-145)
[2023-04-15 07:46] LABS: Glucose Point of Care 230 mg/dl (65-105)
[2023-04-15 08:00] VITALS: BP 136/68; PULSE 96; RESP 20; TEMP 36.6; O2SAT 99
[2023-04-15] MEDS: CEFEPIME 2 GM/NS 50 ML 2 GM/50 ML BAG IVPB (09:30)
[2023-04-15] MEDS: INSULIN ASPART (*BKC) 100 UNITS/ML SUB-Q ×4 (09:30→20:51)
[2023-04-15] MEDS: INSULIN GLARGINE (*BKC) 100 UNITS/ML 12 UNITS SUB-Q (09:31)
[2023-04-15] MEDS: ENOXAPARIN 30 MG/0.3 ML SYRINGE SUB-Q (09:31)
[2023-04-15] MEDS: SODIUM BICARBONATE TAB 650 MG TABLET PO ×2 (09:33→16:54)
[2023-04-15] MEDS: dilTIAZem HCL CD 300 MG CAP.24HR PO (09:33)
[2023-04-15] MEDS: CHOLECALCIFEROL 1,000 UNITS TABLET 2000 UNITS PO ×2 (09:33→16:55)
[2023-04-15] MEDS: MAGNESIUM OXIDE 400 MG TABLET PO (09:33)
[2023-04-15] MEDS: PANTOPRAZOLE 40 MG TABLET PO ×2 (09:33→20:47)
--- NOTE | 2023-04-15 10:06 | P.CDI_ITS ---
CDI Query Clarification Request BMI 17.6 Nutritional Diagnostic Statement Severe protein calorie malnutrition as related to chronic illness, dementia as evidenced by weight loss -17%/7 months; inadequate intake <75 % needs > 1 month: NFPE findings of severe muscle wasting and fat loss. Please refer to the comprehensive nutrition assessment for further information. Please clarify severity of protein calorie malnutrition if known: * Mild * Moderate * Severe * Other/Unspecified <Gardenia Ortega RN - Last Filed: 04/15/23 10:13> Clarified Diagnosis Clarified Diagnosis: Severe protein calorie malnutrition as related to chronic illness, dementia as evidenced by weight loss -17%/7 months; inadequate intake? <75 % needs > 1 month: NFPE findings of severe muscle wasting and fat loss. <Britton Pinto APRN - Last Filed: 04/15/23 12:34>
--- NOTE | 2023-04-15 10:50 | PM.IMPN ---
Progress Note: A&P Assessment and Plan (1) Sepsis: Code(s): A41.9 - Sepsis, unspecified organism Status: Acute Assessment and Plan: Patient has leukocytosis, tachycardia tachypnea UA shows pyuria and microscopic hematuria Possible resulting from UTI and possible gastroenteritis Follow-up blood culture urine culture Start ceftriaxone 1 g IV daily Continue fluid resuscitation 04/13: Urosepsis as most likely culprit. Continue with IV abx. Awaiting urine cultures, blood cultures with NGTD. 04/14: Urine culture is growing pseudomonas and 05/14 blood cultures with gram negative bacilli isolated. Stop rocephin and add cefepime 2 gram. 04/15: DC Moya, continue antibiotics treating for Pseudomonas in blood and urine. (2) Acute on chronic kidney failure: Code(s): N17.9 - Acute kidney failure, unspecified; N18.9 - Chronic kidney disease, unspecified Status: Acute Assessment and Plan: Elevated BUN creatinine above baseline Likely secondary to uncontrolled diabetes, hypertension, sepsis, dehydration, UTI Hold lisinopril, avoid nephrotoxic medication Follow-up BMP Cr baseline appears to be 1.3-1.5 Consult ginner 04/13: Cr today is 2.4, down from 4.5 on admission. Moya catheter is in place with clear, yellow urine. UOP 400 ml thus far today. 04/14: Cr continues to downtrend. Today it is 1.70. UOP of 2350 ml in the last 24 hours. 04/15: Cr 1.6, GFR 51, stopped IVF. (3) Acute hypernatremia: Code(s): E87.0 - Hyperosmolality and hypernatremia Status: Acute Assessment and Plan: Acute hypernatremia after correction of hyperglycemia. Na 156 nephrology consulted, rec's appreciated. Fluids switched to 1/2 NS at 75 ml per hour Repeat BMP this afternoon 04/14: Na+ normalized at 145. 04/15: Na+ 141. Stopped IVFluids (4) Uncontrolled type 2 diabetes mellitus: Status: Chronic Assessment and Plan: Uncontrolled type 2 diabetes Patient is on metformin only Given patient's age and renal failure stage IV Discontinue metformin Start Lantus 10 units am And insulin sliding scale a.c. q.h.s. Optimize medications for better glucose control Received fluid resuscitation Continue normal saline IV and 125 mL/hour 04/13: Receiving 10 units of lantus daily and SSI. Blood glucose is much improved. Now with hypernatremia of 157. IV fluids switched to 1/2 NS at 75 ml per hour. Repeating BMP this afternoon. 04/14: No A1C on file. Will add on to am labs. Blood glucose is still not within desired range. Will increase night insulin from 10 units to 12 units. 04/15:Ordered A1c. IVF stopped. (5) Acute hyperkalemia: Code(s): E87.5 - Hyperkalemia Status: Acute Assessment and Plan: K+ on admission was 6.0. He has received lokoma as well as treatment for hyperglycemia K+ 4.7 today This is what prompted IMU admission. 04/13: Transfer to med-surg 04/14: K+ 4.3 on am labs. Holding lokoma again. 04/15: K+ 4.8, restart Lokelma (6) Chronic anemia: Code(s): D64.9 - Anemia, unspecified Status: Chronic Assessment and Plan: Chronic anemia, CT suggest possible duodenitis and peptic ulcer Start Protonix 40 mg IV Continue ferrous sulfate p.o. Follow iron panel, ferritin, guaiac Consult GI 04/13: EGD preformed today and findings were acute duodenal ulcers with stigmata of recent bleeding. Multiple biopsies were taken. GI recommends PPI. Increased PPI to BID. Hemoglobin stable at 9 04/14: Hgb 8.7. 04/15: Hgb 8.4, no active bleeding noted/suspected (7) Essential hypertension: Code(s): I10 - Essential (primary) hypertension Status: Chronic Assessment and Plan: Continue Cardizem 300 mg daily p.o. Hold lisinopril because of worsening kidney function 04/13: Blood pressure reviewed. 04/14: Blood pressures reviewed. 04/15: Blood pressures reviewed, no acute intervention needed (8) UTI (urinary tract infection): Code(s): N39.0 - Urinary tract inf
[2023-04-15 11:29] LABS: Glucose Point of Care 330 mg/dl (65-105)
--- NOTE | 2023-04-15 11:45 | P.PNNP_ITS ---
Progress Note: A&P Assessment and Plan (1) Acute kidney injury: Code(s): N17.9 - Acute kidney failure, unspecified Status: Acute Assessment and Plan: * improving * suspect due to volume depletion/dehydration +/- infection/sepsis (UTI) * recent imaging suggest obstruction (but straight catheterization in ER not reflective of this) * interestingly, did receive IV contrast on 04/05 with prior ER visit * improvement in renal function noted with just IVF resuscitation * evaluation to date noted: * urine eosinophils negative * urine electrolytes non-prerenal * CPK low * CT on 04/12 with there is no evidence of renal or ureteral calculi. The kidneys and the ureters are nondilated * CT on 04/05 with marked enlargement of the prostate with circumferential wall thickening of the urinary bladder, likely due to chronic outlet obstruction * follow trend of repeat labs and UOP (2) Stage 3a chronic kidney disease: Code(s): N18.31 - Chronic kidney disease, stage 3a Status: Acute Assessment and Plan: * baseline creatinine runs around 1.3 - 1.5mg/dl * this causes him to fluctuate between CKD stage 2 and stage 3A * likely due to hypertension, diabetes, vascular disease and age-related change (3) Sepsis: Code(s): A41.9 - Sepsis, unspecified organism Status: Acute Assessment and Plan: * suspect urosepsis * urine culture with Pseudomonas * blood culture with Pseudomonas as well * on antibiotics * follow repeat cultures (4) Hypernatremia: Code(s): E87.0 - Hyperosmolality and hypernatremia Status: Acute Assessment and Plan: * improvement noted * due to free water deficit from poor oral hydration and likely secondary to aggressive normal saline IVFs given in ER along with maintenance IVFs as well as hyperglycemia * admission sodium of 143 with a glucose 593 corrects to a sodium of ~ 155 * was on 1/2NS IVFs to provide free water and volume -- off today * follow sodium level (5) Hyperkalemia: Code(s): E87.5 - Hyperkalemia Status: Acute Assessment and Plan: * resolved * as noted by admission labs * likely due to SYED/ARF + JUS-I use * corrected with medical management * follow repeat K+ levels (6) Chronic anemia: Code(s): D64.9 - Anemia, unspecified Status: Chronic Assessment and Plan: * admission CT suggests possible duodenitis and peptic ulcer * underlying CKD likely playing a role * GI following * anemia studies noted * s/p EGD (on 04/13): * acute duodenal ulcers with stigmata of recent bleeding... * on PPI bid * follow H/H (7) Essential hypertension: Code(s): I10 - Essential (primary) hypertension Status: Chronic Assessment and Plan: * reasonable control but fluctuating * holding JUS-I at this time due to #1 * follow trend of hemodynamics (8) Uncontrolled type 2 diabetes mellitus: Status: Chronic Assessment and Plan: * as noted by admission glucose of 593 * follow accu-cheks * glycemic control per hospitalists Will continue to follow. Subjective Date/time seen: 04/15/23 11:45 Interval history: Follow-up for acute kidney injury/acute renal failure on chronic kidney disease and hypernatremia. Renal function/creatinine continues to improve with ongoing therapy/interventions; mentation seems stable; otherwise, hemodynamically stable; no apparent distress noted; no issues/events overnight or e
--- NOTE | 2023-04-15 11:45 | PM.PNNEP ---
Progress Note: A&P Assessment and Plan (1) Acute kidney injury: Code(s): N17.9 - Acute kidney failure, unspecified Status: Acute Assessment and Plan: improving suspect due to volume depletion/dehydration +/- infection/sepsis (UTI) recent imaging suggest obstruction (but straight catheterization in ER not reflective of this) interestingly, did receive IV contrast on 04/05 with prior ER visit improvement in renal function noted with just IVF resuscitation evaluation to date noted: urine eosinophils negative urine electrolytes non-prerenal CPK low CT on 04/12 with there is no evidence of renal or ureteral calculi. The kidneys and the ureters are nondilated CT on 04/05 with marked enlargement of the prostate with circumferential wall thickening of the urinary bladder, likely due to chronic outlet obstruction follow trend of repeat labs and UOP (2) Stage 3a chronic kidney disease: Code(s): N18.31 - Chronic kidney disease, stage 3a Status: Acute Assessment and Plan: baseline creatinine runs around 1.3 - 1.5mg/dl this causes him to fluctuate between CKD stage 2 and stage 3A likely due to hypertension, diabetes, vascular disease and age-related change (3) Sepsis: Code(s): A41.9 - Sepsis, unspecified organism Status: Acute Assessment and Plan: suspect urosepsis urine culture with Pseudomonas blood culture with Pseudomonas as well on antibiotics follow repeat cultures (4) Hypernatremia: Code(s): E87.0 - Hyperosmolality and hypernatremia Status: Acute Assessment and Plan: improvement noted due to free water deficit from poor oral hydration and likely secondary to aggressive normal saline IVFs given in ER along with maintenance IVFs as well as hyperglycemia admission sodium of 143 with a glucose 593 corrects to a sodium of ~ 155 was on 1/2NS IVFs to provide free water and volume -- off today follow sodium level (5) Hyperkalemia: Code(s): E87.5 - Hyperkalemia Status: Acute Assessment and Plan: resolved as noted by admission labs likely due to SYED/ARF + JUS-I use corrected with medical management follow repeat K+ levels (6) Chronic anemia: Code(s): D64.9 - Anemia, unspecified Status: Chronic Assessment and Plan: admission CT suggests possible duodenitis and peptic ulcer underlying CKD likely playing a role GI following anemia studies noted s/p EGD (on 04/13): acute duodenal ulcers with stigmata of recent bleeding... on PPI bid follow H/H (7) Essential hypertension: Code(s): I10 - Essential (primary) hypertension Status: Chronic Assessment and Plan: reasonable control but fluctuating holding JUS-I at this time due to #1 follow trend of hemodynamics (8) Uncontrolled type 2 diabetes mellitus: Status: Chronic Assessment and Plan: as noted by admission glucose of 593 follow accu-cheks glycemic control per hospitalists Will continue to follow. Subjective Date/time seen: 04/15/23 11:45 Interval history: Follow-up for acute kidney injury/acute renal failure on chronic kidney disease and hypernatremia. Renal function/creatinine continues to improve with ongoing therapy/interventions; mentation seems stable; otherwise, hemodynamically stable; no apparent distress noted; no issues/events overnight or earlier this morning. Exam Narrative: General: thin and elderly male in NAD Heart: normal S1 and S2; no rub Lungs: clear to auscultation Abdomen: soft, nontender, nondistended, positive bowel sounds Extremities: no cyanosis or clubbing; no edema Skin: warm and intact Objective Data Vital Signs Vital Signs: Vital Signs Temp Pulse Resp BP Pulse Ox O2 Del Method 04/15/23 08:00 98 F 96 20 136/68 99 04/15/23 05:04 97.9 F 98 20 144/76 H 99 04/14/23 20:00 100 Room
--- NOTE | 2023-04-15 12:02 | PCNFU ---
Nutrition Follow-Up Complete: Severe protein calorie malnutrition related to chronic illness, dementia as evidenced by weight loss -17%/7 months; inadequate intake <75% needs >1 month; NFPE findings of severe muscle wasting and fat loss Goal:PO intake at least 75% meals and supplements Pt is progressing to goal, continue with same goal Pt current nutrition is Diabetic consistent carb, Ensure Enlive TID. Nutrition recommendation: Change supplement to Glucerna shakes Last recorded weight is 64.3 kg. Bowel Motility: No BM recorded Labs Reviewed: Hgb:8.4, HCT:27.4, GFR:51, BUN:42, Cr:1.6, Glu:230,319 Meds Noted: lovenox, novolog, lantus Skin: no skin issues noted Additional Notes: Pt reports a good appetite, intake charted at 25%. Pt drinking Ensure during assessment, likes it. Wlll switch to Glucerna shakes due to elevated blood sugars. Pt agreeable to switch. Monitoring intakes, weights, labs, supplement tolerance, plan of care Follow up in 5 days
[2023-04-15 14:23] LABS: IFOB Positive Control Positive; Immunochemical Fecal Occult Bl Negative (N)
[2023-04-15 16:36] LABS: Glucose Point of Care 258 mg/dl (65-105)
[2023-04-15 20:40] VITALS: BP 141/65; PULSE 97; RESP 18; TEMP 36.5; O2SAT 100
[2023-04-15] MEDS: levoFLOXacin 750 MG TABLET PO (20:47)
[2023-04-15 21:04] LABS: Glucose Point of Care 210 mg/dl (65-105)
[2023-04-16 04:36] VITALS: BP 131/62; PULSE 97; RESP 18; TEMP 36.4; O2SAT 96
[2023-04-16 06:58] LABS: Basophils Percent Auto 0.1 % (0.2-1.2); Eosinophils Absolute Auto 0.1 K/mm3 (0-0.3); Hematocrit 22.3 % (42.0-52.0); Immature Granulocyte Absolute 0.03 K/mm3 (0.00-0.031); Immature Granulocyte Percent A 0.4 % (0-0.5); Lymphocytes Absolute Auto 1.43 K/mm3 (0.9-3.2); Lymphocytes Percent Auto 21.2 % (18.3-44.2); Mean Corpuscular HGB Conc 30.9 g/dl (32-36); Mean Corpuscular Hemoglobin 29.1 pg (26-34); Mean Corpuscular Volume 94.1 fl (80-100); Mean Platelet Volume 10.7 fl (7.4-10.4); Monocytes Absolute Auto 0.3 K/mm3 (0.1-0.6); Monocytes Percent Auto 5.1 % (2.6-8.5); Neutrophils Absolute Auto 4.9 K/mm3 (1.3-6.7); Neutrophils Percent Auto 72.2 % (45.5-73.1); Platelet Count Result 332 k/mm3 (150-375); Red Blood Count 2.37 M/mm3 (4.6-6.20); Red Cell Distribution Width 12.3 % (11.5-14.5); White Blood Count 6.7 K/mm3 (4.5-10.0)
[2023-04-16 07:02] LABS: Hemoglobin 6.9 g/dL (14.0-18.0)
[2023-04-16 07:19] LABS: Alanine Aminotransferase 11 U/L (6-50); Alkaline Phosphatase 77 U/L (38-126); Anion Gap 9 mmol/L (8-16); Aspartate Amino Transferase 17 U/L (17-59); Bilirubin,Total 0.4 mg/dL (0.2-1.3); Blood Urea Nitrogen 35 mg/dL (9-20); Calcium 8.5 mg/dL (8.4-10.2); Carbon Dioxide 23 mmol/L (22-30); Chloride 107 mmol/L (98-107); Estimated CRCL calculation 29 ml/min; Estimated Glomerular Filt Rate 55; Glucose 172 mg/dL (65-110); Potassium 3.8 mmol/L (3.4-5.0); Sodium 139 mmol/L (137-145)
[2023-04-16 07:42] LABS: Glucose Point of Care 167 mg/dl (65-105)
[2023-04-16 08:38] LABS: Hematocrit 25.2 % (42.0-52.0); Hemoglobin 7.8 g/dL (14.0-18.0)
[2023-04-16] MEDS: dilTIAZem HCL CD 300 MG CAP.24HR PO (08:54)
[2023-04-16] MEDS: ENOXAPARIN 30 MG/0.3 ML SYRINGE SUB-Q (08:54)
[2023-04-16] MEDS: PANTOPRAZOLE 40 MG TABLET PO (08:54)
[2023-04-16] MEDS: SODIUM BICARBONATE TAB 650 MG TABLET PO ×2 (08:54→17:15)
[2023-04-16] MEDS: MAGNESIUM OXIDE 400 MG TABLET PO (08:54)
[2023-04-16] MEDS: CHOLECALCIFEROL 1,000 UNITS TABLET 2000 UNITS PO ×2 (08:54→17:15)
[2023-04-16] MEDS: INSULIN GLARGINE (*BKC) 100 UNITS/ML 12 UNITS SUB-Q (08:59)
[2023-04-16 09:49] LABS: Folic Acid 6.2 ng/mL (2.76->20)
--- NOTE | 2023-04-16 10:25 | PCPTNOTE ---
Attempted to see patient for PT treatment. Patient A&Ox1. Patient refuses to attempt transfer from chair, exercise, and gait. Patient continuously changes conversation to being with several men yesterday and last night. PT will continue to follow per plan of care.
--- NOTE | 2023-04-16 10:51 | PM.IMPN ---
Progress Note: A&P Assessment and Plan (1) Sepsis: Code(s): A41.9 - Sepsis, unspecified organism Status: Acute Assessment and Plan: Patient has leukocytosis, tachycardia tachypnea UA shows pyuria and microscopic hematuria Possible resulting from UTI and possible gastroenteritis Follow-up blood culture urine culture Start ceftriaxone 1 g IV daily Continue fluid resuscitation 04/13: Urosepsis as most likely culprit. Continue with IV abx. Awaiting urine cultures, blood cultures with NGTD. 04/14: Urine culture is growing pseudomonas and 1 blood cultures with gram negative bacilli isolated. Stop rocephin and add cefepime 2 gram. 04/15: DC Moya, continue antibiotics treating for Pseudomonas in blood and urine. 04/16: Patient had momentary urinary retention with spontaneous resolution VA urinary continence. (2) Acute on chronic kidney failure: Code(s): N17.9 - Acute kidney failure, unspecified; N18.9 - Chronic kidney disease, unspecified Status: Acute Assessment and Plan: Elevated BUN creatinine above baseline Likely secondary to uncontrolled diabetes, hypertension, sepsis, dehydration, UTI Hold lisinopril, avoid nephrotoxic medication Follow-up BMP Cr baseline appears to be 1.3-1.5 Consult campus security director 04/13: Cr today is 2.4, down from 4.5 on admission. Moya catheter is in place with clear, yellow urine. UOP 400 ml thus far today. 04/14: Cr continues to downtrend. Today it is 1.70. UOP of 2350 ml in the last 24 hours. 04/15: Cr 1.6, GFR 51, stopped IVF. 04/16: Creatinine 1.5 BUN 35 estimated GFR 55 estimated creatinine clearance 29 (3) Acute hypernatremia: Code(s): E87.0 - Hyperosmolality and hypernatremia Status: Acute Assessment and Plan: Acute hypernatremia after correction of hyperglycemia. Na 156 nephrology consulted, rec's appreciated. Fluids switched to 1/2 NS at 75 ml per hour Repeat BMP this afternoon 04/14: Na+ normalized at 145. 04/15: Na+ 141. Stopped IVFluids 04/16: Sodium 139 (4) Uncontrolled type 2 diabetes mellitus: Status: Chronic Assessment and Plan: Uncontrolled type 2 diabetes Patient is on metformin only Given patient's age and renal failure stage IV Discontinue metformin Start Lantus 10 units am And insulin sliding scale a.c. q.h.s. Optimize medications for better glucose control Received fluid resuscitation Continue normal saline IV and 125 mL/hour 04/13: Receiving 10 units of lantus daily and SSI. Blood glucose is much improved. Now with hypernatremia of 157. IV fluids switched to 1/2 NS at 75 ml per hour. Repeating BMP this afternoon. 04/14: No A1C on file. Will add on to am labs. Blood glucose is still not within desired range. Will increase night insulin from 10 units to 12 units. 04/15:Ordered A1c. IVF stopped. 04/16: Hyperglycemia prior to lunch. Additional 5 units insulin ordered. Son pointed out that patient has been eating ice cream with each meal and getting Ensure instead of Glucerna supplements. Nursing staff notified. (5) Acute hyperkalemia: Code(s): E87.5 - Hyperkalemia Status: Acute Assessment and Plan: K+ on admission was 6.0. He has received lokoma as well as treatment for hyperglycemia K+ 4.7 today This is what prompted IMU admission. 04/13: Transfer to med-surg 04/14: K+ 4.3 on am labs. Holding lokoma again. 04/15: K+ 4.8, restart Lokelma 04/16: Potassium 3.8. Lokelma discontinued (6) Chronic anemia: Code(s): D64.9 - Anemia, unspecified Status: Chronic Assessment and Plan: Chronic anemia, CT suggest possible duodenitis and peptic ulcer Start Protonix 40 mg IV Continue ferrous sulfate p.o. Follow iron panel, ferritin, guaiac Consult GI 04/13: EGD preformed today and findings were acute duodenal ulcers with stigmata of recent bleeding. Multiple biopsies were taken. GI recommends PPI. Increased PPI to BID. Hemoglobin stable at 9 04/14: Hgb 8.7. 04/15: Hgb 8.4, no acti
--- NOTE | 2023-04-16 11:20 | P.PNNP_ITS ---
Progress Note: A&P Assessment and Plan (1) Acute kidney injury: Code(s): N17.9 - Acute kidney failure, unspecified Status: Acute Assessment and Plan: * improving (if not back to baseline) * suspect due to volume depletion/dehydration +/- infection/sepsis (UTI) * recent imaging suggest obstruction (but straight catheterization in ER not reflective of this) * interestingly, did receive IV contrast on 04/05 with prior ER visit * improvement in renal function noted with just IVF resuscitation * evaluation to date noted: * urine eosinophils negative * urine electrolytes non-prerenal * CPK low * CT on 04/12 with there is no evidence of renal or ureteral calculi. The kidneys and the ureters are nondilated * CT on 04/05 with marked enlargement of the prostate with circumferential wall thickening of the urinary bladder, likely due to chronic outlet obstruction * follow trend of repeat labs and UOP (2) Stage 3a chronic kidney disease: Code(s): N18.31 - Chronic kidney disease, stage 3a Status: Acute Assessment and Plan: * baseline creatinine runs around 1.3 - 1.5mg/dl * this causes him to fluctuate between CKD stage 2 and stage 3A * likely due to hypertension, diabetes, vascular disease and age-related change * he may have a new baseline creatinine of 1.5 - 1.6mg/dl given recent medical issues.... (3) Sepsis: Code(s): A41.9 - Sepsis, unspecified organism Status: Resolved Assessment and Plan: * suspect urosepsis * urine culture with Pseudomonas * blood culture with Pseudomonas as well * on antibiotics * follow repeat cultures (negative to date) (4) Hypernatremia: Code(s): E87.0 - Hyperosmolality and hypernatremia Status: Acute Assessment and Plan: * resolved * due to free water deficit from poor oral hydration and likely secondary to aggressive normal saline IVFs given in ER along with maintenance IVFs as well as hyperglycemia * admission sodium of 143 with a glucose 593 corrects to a sodium of ~ 155 * was on 1/2NS IVFs to provide free water and volume -- off currently * follow sodium level (5) Hyperkalemia: Code(s): E87.5 - Hyperkalemia Status: Acute Assessment and Plan: * resolved * as noted by admission labs * likely due to SYED/ARF + JUS-I use * corrected with medical management * follow repeat K+ levels (6) Chronic anemia: Code(s): D64.9 - Anemia, unspecified Status: Chronic Assessment and Plan: * admission CT suggests possible duodenitis and peptic ulcer * underlying CKD likely playing a role * GI following * anemia studies noted * s/p EGD (on 04/13): * acute duodenal ulcers with stigmata of recent bleeding... * on PPI bid * follow H/H (7) Essential hypertension: Code(s): I10 - Essential (primary) hypertension Status: Chronic Assessment and Plan: * reasonable control but fluctuating * holding JUS-I at this time due to #1 * follow trend of hemodynamics (8) Uncontrolled type 2 diabetes mellitus: Status: Chronic Assessment and Plan: * as noted by admission glucose of 593 * follow accu-cheks * glycemic control per hospitalists Will continue to follow. Subjective Date/time seen: 04/16/23 11:20 Interval history: Follow-up for acute kidney injury/acute renal failure on chronic kidney disease and hypernatremia. Renal function relatively stable with stability in potassium as
--- NOTE | 2023-04-16 11:20 | PM.PNNEP ---
Progress Note: A&P Assessment and Plan (1) Acute kidney injury: Code(s): N17.9 - Acute kidney failure, unspecified Status: Acute Assessment and Plan: improving (if not back to baseline) suspect due to volume depletion/dehydration +/- infection/sepsis (UTI) recent imaging suggest obstruction (but straight catheterization in ER not reflective of this) interestingly, did receive IV contrast on 04/05 with prior ER visit improvement in renal function noted with just IVF resuscitation evaluation to date noted: urine eosinophils negative urine electrolytes non-prerenal CPK low CT on 04/12 with there is no evidence of renal or ureteral calculi. The kidneys and the ureters are nondilated CT on 04/05 with marked enlargement of the prostate with circumferential wall thickening of the urinary bladder, likely due to chronic outlet obstruction follow trend of repeat labs and UOP (2) Stage 3a chronic kidney disease: Code(s): N18.31 - Chronic kidney disease, stage 3a Status: Acute Assessment and Plan: baseline creatinine runs around 1.3 - 1.5mg/dl this causes him to fluctuate between CKD stage 2 and stage 3A likely due to hypertension, diabetes, vascular disease and age-related change he may have a new baseline creatinine of 1.5 - 1.6mg/dl given recent medical issues.... (3) Sepsis: Code(s): A41.9 - Sepsis, unspecified organism Status: Resolved Assessment and Plan: suspect urosepsis urine culture with Pseudomonas blood culture with Pseudomonas as well on antibiotics follow repeat cultures (negative to date) (4) Hypernatremia: Code(s): E87.0 - Hyperosmolality and hypernatremia Status: Acute Assessment and Plan: resolved due to free water deficit from poor oral hydration and likely secondary to aggressive normal saline IVFs given in ER along with maintenance IVFs as well as hyperglycemia admission sodium of 143 with a glucose 593 corrects to a sodium of ~ 155 was on 1/2NS IVFs to provide free water and volume -- off currently follow sodium level (5) Hyperkalemia: Code(s): E87.5 - Hyperkalemia Status: Acute Assessment and Plan: resolved as noted by admission labs likely due to SYED/ARF + JUS-I use corrected with medical management follow repeat K+ levels (6) Chronic anemia: Code(s): D64.9 - Anemia, unspecified Status: Chronic Assessment and Plan: admission CT suggests possible duodenitis and peptic ulcer underlying CKD likely playing a role GI following anemia studies noted s/p EGD (on 04/13): acute duodenal ulcers with stigmata of recent bleeding... on PPI bid follow H/H (7) Essential hypertension: Code(s): I10 - Essential (primary) hypertension Status: Chronic Assessment and Plan: reasonable control but fluctuating holding JUS-I at this time due to #1 follow trend of hemodynamics (8) Uncontrolled type 2 diabetes mellitus: Status: Chronic Assessment and Plan: as noted by admission glucose of 593 follow accu-cheks glycemic control per hospitalists Will continue to follow. Subjective Date/time seen: 04/16/23 11:20 Interval history: Follow-up for acute kidney injury/acute renal failure on chronic kidney disease and hypernatremia. Renal function relatively stable with stability in potassium as well as sodium level; no apparent distress voiced at the time of my visit; no issues/events ovenight or earlier this morning. Exam Narrative: General: thin and elderly male in NAD Heart: normal S1 and S2; no rub Lungs: clear to auscultation Abdomen: soft, nontender, nondistended, positive bowel sounds Extremities: no cyanosis or clubbing; no edema Skin: no rash Objective Data Vital Signs Vital Signs: Vital Signs Temp Pulse Resp BP Pulse Ox O2 Del Method 04/16/23 11:00 96.9 F L
[2023-04-16 12:05] LABS: Glucose Point of Care 351 mg/dl (65-105)
[2023-04-16] MEDS: INSULIN ASPART (*BKC) 100 UNITS/ML SUB-Q ×3 (12:31→17:14)
[2023-04-16 14:00] VITALS: BP 121/58; PULSE 107; RESP 16; TEMP 36.1; O2SAT 100
[2023-04-16 16:42] LABS: Glucose Point of Care 308 mg/dl (65-105)
--- NOTE | 2023-04-16 16:56 | PC.NURSE ---
I have reviewed Tanika De La Rosa LPN's chart and agree with her assessment and findings.
[2023-04-16 20:32] LABS: Glucose Point of Care 181 mg/dl (65-105)
[2023-04-16 21:00] VITALS: BP 138/63; PULSE 102; RESP 18; TEMP 36.3; O2SAT 97
[2023-04-17 04:47] VITALS: BP 132/68; PULSE 89; RESP 16; TEMP 36.3; O2SAT 100
[2023-04-17 06:46] LABS: Basophils Percent Auto 0.3 % (0.2-1.2); Eosinophils Absolute Auto 0.1 K/mm3 (0-0.3); Eosinophils Percent Auto 1.7 % (0-4.4); Hematocrit 24.5 % (42.0-52.0); Hemoglobin 7.5 g/dL (14.0-18.0); Immature Granulocyte Absolute 0.03 K/mm3 (0.00-0.031); Immature Granulocyte Percent A 0.5 % (0-0.5); Lymphocytes Absolute Auto 2.14 K/mm3 (0.9-3.2); Lymphocytes Percent Auto 32.3 % (18.3-44.2); Mean Corpuscular HGB Conc 30.6 g/dl (32-36); Mean Corpuscular Hemoglobin 28.8 pg (26-34); Mean Corpuscular Volume 94.2 fl (80-100); Monocytes Absolute Auto 0.4 K/mm3 (0.1-0.6); Monocytes Percent Auto 5.3 % (2.6-8.5); Neutrophils Percent Auto 59.9 % (45.5-73.1); Platelet Count Result 407 k/mm3 (150-375); Red Cell Distribution Width 12.3 % (11.5-14.5); White Blood Count 6.6 K/mm3 (4.5-10.0)
[2023-04-17 06:53] LABS: Alanine Aminotransferase 20 U/L (6-50); Albumin Level 3.4 g/dL (3.5-5.1); Alkaline Phosphatase 84 U/L (38-126); Anion Gap 7 mmol/L (8-16); Aspartate Amino Transferase 28 U/L (17-59); Bilirubin,Total 0.5 mg/dL (0.2-1.3); Blood Urea Nitrogen 32 mg/dL (9-20); Calcium 8.8 mg/dL (8.4-10.2); Carbon Dioxide 26 mmol/L (22-30); Chloride 107 mmol/L (98-107); Estimated CRCL calculation 28 ml/min; Estimated Glomerular Filt Rate 51; Glucose 115 mg/dL (65-110); Potassium 3.6 mmol/L (3.4-5.0); Sodium 140 mmol/L (137-145)
[2023-04-17 08:00] VITALS: O2SAT 100
[2023-04-17 08:24] LABS: Glucose Point of Care 115 mg/dl (65-105)
[2023-04-17] MEDS: CHOLECALCIFEROL 1,000 UNITS TABLET 2000 UNITS PO ×2 (09:10→16:48)
[2023-04-17] MEDS: SODIUM BICARBONATE TAB 650 MG TABLET PO ×2 (09:11→16:48)
[2023-04-17] MEDS: ENOXAPARIN 30 MG/0.3 ML SYRINGE SUB-Q (09:11)
[2023-04-17] MEDS: MAGNESIUM OXIDE 400 MG TABLET PO (09:11)
[2023-04-17] MEDS: dilTIAZem HCL CD 300 MG CAP.24HR PO (09:11)
[2023-04-17] MEDS: INSULIN GLARGINE (*BKC) 100 UNITS/ML 12 UNITS SUB-Q (09:11)
[2023-04-17] MEDS: PANTOPRAZOLE 40 MG TABLET PO ×2 (09:11→20:55)
[2023-04-17 11:58] LABS: Glucose Point of Care 145 mg/dl (65-105)
--- NOTE | 2023-04-17 12:57 | PM.PNNEP ---
Progress Note: A&P Assessment and Plan (1) Acute kidney injury: Code(s): N17.9 - Acute kidney failure, unspecified Status: Acute Assessment and Plan: improving (if not back to baseline) suspect due to volume depletion/dehydration +/- infection/sepsis (UTI) recent imaging suggest obstruction (but straight catheterization in ER not reflective of this) interestingly, did receive IV contrast on 04/05 with prior ER visit improvement in renal function noted with just IVF resuscitation evaluation to date noted: urine eosinophils negative urine electrolytes non-prerenal CPK low CT on 04/12 with there is no evidence of renal or ureteral calculi. The kidneys and the ureters are nondilated CT on 04/05 with marked enlargement of the prostate with circumferential wall thickening of the urinary bladder, likely due to chronic outlet obstruction follow trend of repeat labs and UOP (2) Stage 3a chronic kidney disease: Code(s): N18.31 - Chronic kidney disease, stage 3a Status: Acute Assessment and Plan: baseline creatinine runs around 1.3 - 1.5mg/dl this causes him to fluctuate between CKD stage 2 and stage 3A likely due to hypertension, diabetes, vascular disease and age-related change he may have a new baseline creatinine of 1.5 - 1.6mg/dl given recent medical issues.... (3) Sepsis: Code(s): A41.9 - Sepsis, unspecified organism Status: Resolved Assessment and Plan: suspect urosepsis urine culture with Pseudomonas blood culture with Pseudomonas as well on antibiotics follow repeat cultures (negative to date) (4) Hypernatremia: Code(s): E87.0 - Hyperosmolality and hypernatremia Status: Acute Assessment and Plan: resolved due to free water deficit from poor oral hydration and likely secondary to aggressive normal saline IVFs given in ER along with maintenance IVFs as well as hyperglycemia admission sodium of 143 with a glucose 593 corrects to a sodium of ~ 155 was on 1/2NS IVFs to provide free water and volume -- off currently follow sodium level (5) Hyperkalemia: Code(s): E87.5 - Hyperkalemia Status: Acute Assessment and Plan: resolved as noted by admission labs likely due to SYED/ARF + JUS-I use corrected with medical management follow repeat K+ levels (6) Chronic anemia: Code(s): D64.9 - Anemia, unspecified Status: Chronic Assessment and Plan: admission CT suggests possible duodenitis and peptic ulcer underlying CKD likely playing a role GI following anemia studies noted s/p EGD (on 04/13): acute duodenal ulcers with stigmata of recent bleeding... on PPI bid PRBC transfusion per protocol follow H/H (7) Essential hypertension: Code(s): I10 - Essential (primary) hypertension Status: Chronic Assessment and Plan: reasonable control but fluctuating holding JUS-I at this time due to #1 follow trend of hemodynamics (8) Uncontrolled type 2 diabetes mellitus: Status: Chronic Assessment and Plan: as noted by admission glucose of 593 follow accu-cheks glycemic control per hospitalists Will continue to follow. Subjective Date/time seen: 04/17/23 12:57 Interval history: Follow-up for acute kidney injury/acute renal failure on chronic kidney disease and hypernatremia. No new issues or problems voiced at the time of my visit, eating and drinking reasonably well; renal function relatively stable with no critical electrolytes noted; no apparent distress to report. Exam Narrative: General: thin and elderly male in NAD Heart: normal S1 and S2; no rub Lungs: clear to auscultation Abdomen: soft, nontender, nondistended, positive bowel sounds Extremities: no cyanosis or clubbing; no edema Skin: no nodules Objective Data Vital Signs Vital Signs: Vital Signs Temp Pulse Resp BP Pulse Ox
--- NOTE | 2023-04-17 12:57 | P.PNNP_ITS ---
Progress Note: A&P Assessment and Plan (1) Acute kidney injury: Code(s): N17.9 - Acute kidney failure, unspecified Status: Acute Assessment and Plan: * improving (if not back to baseline) * suspect due to volume depletion/dehydration +/- infection/sepsis (UTI) * recent imaging suggest obstruction (but straight catheterization in ER not reflective of this) * interestingly, did receive IV contrast on 04/05 with prior ER visit * improvement in renal function noted with just IVF resuscitation * evaluation to date noted: * urine eosinophils negative * urine electrolytes non-prerenal * CPK low * CT on 04/12 with there is no evidence of renal or ureteral calculi. The kidneys and the ureters are nondilated * CT on 04/05 with marked enlargement of the prostate with circumferential wall thickening of the urinary bladder, likely due to chronic outlet obstruction * follow trend of repeat labs and UOP (2) Stage 3a chronic kidney disease: Code(s): N18.31 - Chronic kidney disease, stage 3a Status: Acute Assessment and Plan: * baseline creatinine runs around 1.3 - 1.5mg/dl * this causes him to fluctuate between CKD stage 2 and stage 3A * likely due to hypertension, diabetes, vascular disease and age-related change * he may have a new baseline creatinine of 1.5 - 1.6mg/dl given recent medical issues.... (3) Sepsis: Code(s): A41.9 - Sepsis, unspecified organism Status: Resolved Assessment and Plan: * suspect urosepsis * urine culture with Pseudomonas * blood culture with Pseudomonas as well * on antibiotics * follow repeat cultures (negative to date) (4) Hypernatremia: Code(s): E87.0 - Hyperosmolality and hypernatremia Status: Acute Assessment and Plan: * resolved * due to free water deficit from poor oral hydration and likely secondary to aggressive normal saline IVFs given in ER along with maintenance IVFs as well as hyperglycemia * admission sodium of 143 with a glucose 593 corrects to a sodium of ~ 155 * was on 1/2NS IVFs to provide free water and volume -- off currently * follow sodium level (5) Hyperkalemia: Code(s): E87.5 - Hyperkalemia Status: Acute Assessment and Plan: * resolved * as noted by admission labs * likely due to SYED/ARF + JUS-I use * corrected with medical management * follow repeat K+ levels (6) Chronic anemia: Code(s): D64.9 - Anemia, unspecified Status: Chronic Assessment and Plan: * admission CT suggests possible duodenitis and peptic ulcer * underlying CKD likely playing a role * GI following * anemia studies noted * s/p EGD (on 04/13): * acute duodenal ulcers with stigmata of recent bleeding... * on PPI bid * PRBC transfusion per protocol * follow H/H (7) Essential hypertension: Code(s): I10 - Essential (primary) hypertension Status: Chronic Assessment and Plan: * reasonable control but fluctuating * holding JUS-I at this time due to #1 * follow trend of hemodynamics (8) Uncontrolled type 2 diabetes mellitus: Status: Chronic Assessment and Plan: * as noted by admission glucose of 593 * follow accu-cheks * glycemic control per hospitalists Will continue to follow. Subjective Date/time seen: 04/17/23 12:57 Interval history: Follow-up for acute kidney injury/acute renal failure on chronic kidney disease and hypernatremia. No new issues or problems v
[2023-04-17 14:18] VITALS: BP 119/65; PULSE 84; RESP 18; TEMP 36.4; O2SAT 100
--- NOTE | 2023-04-17 14:51 | PM.IMPN ---
Progress Note: A&P Assessment and Plan (1) Sepsis: Code(s): A41.9 - Sepsis, unspecified organism Status: Acute Assessment and Plan: Patient has leukocytosis, tachycardia tachypnea UA shows pyuria and microscopic hematuria Possible resulting from UTI and possible gastroenteritis Follow-up blood culture urine culture Start ceftriaxone 1 g IV daily Continue fluid resuscitation 04/13: Urosepsis as most likely culprit. Continue with IV abx. Awaiting urine cultures, blood cultures with NGTD. 04/14: Urine culture is growing pseudomonas and 1/2 blood cultures with gram negative bacilli isolated. Stop rocephin and add cefepime 2 gram. 04/15: DC Moya, continue antibiotics treating for Pseudomonas in blood and urine. 04/16: Patient had momentary urinary retention with spontaneous resolution VA urinary continence. 04/17: Levaquin to be continued treating Pseudomonas and blood in urine. Repeat blood cultures negative growth to date over 48 hours, patient stable for discharge awaiting placement at SNF. 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 Moya catheter is in place with clear, yellow urine. UOP 400 ml thus far today. 04/14: Cr continues to downtrend. Today it is 1.70. UOP of 2350 ml in the last 24 hours. 04/15: Cr 1.6, GFR 51, stopped IVF. 04/16: Creatinine 1.5 BUN 35 estimated GFR 55 estimated creatinine clearance 29 04/17: Creatinine 1.6 BUN 32 estimated GFR 51 estimated creatinine clearance 28 (3) Acute hypernatremia: Code(s): E87.0 - Hyperosmolality and hypernatremia Status: Acute Assessment and Plan: Acute hypernatremia after correction of hyperglycemia. Na 156 nephrology consulted, rec's appreciated. Fluids switched to 1/2 NS at 75 ml per hour Repeat BMP this afternoon 04/14: Na+ normalized at 145. 12/4: Na+ 141. Stopped IVFluids 04/16: Sodium 139 04/17: Sodium 140 (4) Uncontrolled type 2 diabetes mellitus: Status: Chronic Assessment and Plan: Uncontrolled type 2 diabetes Patient is on metformin only Given patient's age and renal failure stage IV Discontinue metformin Start Lantus 10 units am And insulin sliding scale a.c. q.h.s. Optimize medications for better glucose control Received fluid resuscitation Continue normal saline IV and 125 mL/hour 04/13: Receiving 10 units of lantus daily and SSI. Blood glucose is much improved. Now with hypernatremia of 157. IV fluids switched to 1/2 NS at 75 ml per hour. Repeating BMP this afternoon. 04/14: No A1C on file. Will add on to am labs. Blood glucose is still not within desired range. Will increase night insulin from 10 units to 12 units. 04/15:Ordered A1c. IVF stopped. 04/16: Hyperglycemia prior to lunch. Additional 5 units insulin ordered. Son pointed out that patient has been eating ice cream with each meal and getting Ensure instead of Glucerna supplements. Nursing staff notified. 04/17: Blood sugars significantly improved after dietary changes yesterday. (5) Acute hyperkalemia: Code(s): E87.5 - Hyperkalemia Status: Acute Assessment and Plan: K+ on admission was 6.0. He has received lokoma as well as treatment for hyperglycemia K+ 4.7 today This is what prompted IMU admission. 04/13: Transfer to med-surg 04/14: K+ 4.3 on am labs. Holding lokoma again. 04/15: K+ 4.8, restart Lokelma 04/16: Potassium 3.8. Lokelma discontinued 04/17: Potassium 3.6 (6) Chronic anemia: Code(s): D64.9 - Anemia, unspecified Status: Chronic Assessment and Plan: Chronic anemia,
[2023-04-17 16:52] LABS: Glucose Point of Care 189 mg/dl (65-105)
[2023-04-17 20:23] LABS: Glucose Point of Care 254 mg/dl (65-105)
[2023-04-17] MEDS: levoFLOXacin 750 MG TABLET PO (20:55)
[2023-04-17] MEDS: INSULIN ASPART (*BKC) 100 UNITS/ML SUB-Q (20:57)
[2023-04-17 21:54] VITALS: BP 128/61; PULSE 95; RESP 14; TEMP 36.3; O2SAT 100
[2023-04-18] VITALS (12 sets, daily range): BP systolic 122–150; BP diastolic 52–70; PULSE 57–91; RESP 12–18; TEMP 36.1–37; O2SAT 92–100
[2023-04-18 07:00] LABS: Basophils Percent Auto 0.2 % (0.2-1.2); Eosinophils Absolute Auto 0.1 K/mm3 (0-0.3); Eosinophils Percent Auto 2.1 % (0-4.4); Hematocrit 21.2 % (42.0-52.0); Immature Granulocyte Absolute 0.02 K/mm3 (0.00-0.031); Immature Granulocyte Percent A 0.5 % (0-0.5); Lymphocytes Absolute Auto 1.57 K/mm3 (0.9-3.2); Lymphocytes Percent Auto 36.7 % (18.3-44.2); Mean Corpuscular HGB Conc 30.7 g/dl (32-36); Mean Corpuscular Hemoglobin 28.9 pg (26-34); Mean Corpuscular Volume 94.2 fl (80-100); Mean Platelet Volume 10.4 fl (7.4-10.4); Monocytes Absolute Auto 0.4 K/mm3 (0.1-0.6); Monocytes Percent Auto 8.6 % (2.6-8.5); Neutrophils Absolute Auto 2.2 K/mm3 (1.3-6.7); Neutrophils Percent Auto 51.9 % (45.5-73.1); Platelet Count Result 413 k/mm3 (150-375); Red Blood Count 2.25 M/mm3 (4.6-6.20); Red Cell Distribution Width 12.3 % (11.5-14.5); White Blood Count 4.3 K/mm3 (4.5-10.0)
[2023-04-18 07:03] LABS: Hemoglobin 6.5 g/dL (14.0-18.0)
[2023-04-18 07:13] LABS: Alanine Aminotransferase 20 U/L (6-50); Albumin Level 3.3 g/dL (3.5-5.1); Alkaline Phosphatase 79 U/L (38-126); Anion Gap 7 mmol/L (8-16); Aspartate Amino Transferase 25 U/L (17-59); Bilirubin,Total 0.5 mg/dL (0.2-1.3); Blood Urea Nitrogen 30 mg/dL (9-20); Calcium 8.9 mg/dL (8.4-10.2); Carbon Dioxide 26 mmol/L (22-30); Chloride 106 mmol/L (98-107); Estimated CRCL calculation 30 ml/min; Estimated Glomerular Filt Rate 55; Glucose 101 mg/dL (65-110); Potassium 3.7 mmol/L (3.4-5.0); Sodium 139 mmol/L (137-145)
[2023-04-18 08:41] LABS: Glucose Point of Care 85 mg/dl (65-105)
[2023-04-18] MEDS: ENOXAPARIN 30 MG/0.3 ML SYRINGE SUB-Q (09:35)
[2023-04-18] MEDS: INSULIN GLARGINE (*BKC) 100 UNITS/ML 12 UNITS SUB-Q (09:35)
[2023-04-18] MEDS: PANTOPRAZOLE 40 MG TABLET PO ×2 (09:35→20:44)
[2023-04-18] MEDS: CHOLECALCIFEROL 1,000 UNITS TABLET 2000 UNITS PO ×2 (09:35→16:44)
[2023-04-18] MEDS: dilTIAZem HCL CD 300 MG CAP.24HR PO (09:35)
[2023-04-18] MEDS: MAGNESIUM OXIDE 400 MG TABLET PO (09:35)
[2023-04-18] MEDS: SODIUM CHLORIDE 0.9% IV 250 ML 30 ML IV CONT (09:36)
--- NOTE | 2023-04-18 11:10 | PCNFU ---
Nutrition Follow-Up Complete: Severe protein calorie malnutrition related to chronic illness, dementia as evidenced by weight loss -17%/7 months; inadequate intake <75% needs >1 month; NFPE findings of severe muscle wasting and fat loss Goal:PO intake at least 75% meals and supplements Pt progressing towards goal. Continue with same goal. Pt current nutrition is Diabetic consistent carb, Glucerna shakes TID. Nutrition recommendation: continue with current plan of care Last recorded weight is 59.1 kg. Bowel Motility: No BM recorded at this time Labs Reviewed: Hgb:6.5, HCT:21.2, Alb:3.3, GFR:55, BUN:30, Cr:1.5 Meds Noted: lovenox, novolog, lantus Skin: no skin issues noted Additional Notes: Pt continues on a diabetic diet, Intake 25-50% of meals. Supplement changed to Glucerna shakes per recommendation. Continue to encourage po intake of meals and supplements. Monitoring intakes, weights, labs, supplement tolerance, plan of care Follow up in 5 days
--- NOTE | 2023-04-18 11:28 | PM.IMPN ---
Progress Note: A&P Assessment and Plan (1) Sepsis: Code(s): A41.9 - Sepsis, unspecified organism Status: Acute Assessment and Plan: Patient has leukocytosis, tachycardia tachypnea UA shows pyuria and microscopic hematuria Possible resulting from UTI and possible gastroenteritis Follow-up blood culture urine culture Start ceftriaxone 1 g IV daily Continue fluid resuscitation 04/13: Urosepsis as most likely culprit. Continue with IV abx. Awaiting urine cultures, blood cultures with NGTD. 04/14: Urine culture is growing pseudomonas and 1/2 blood cultures with gram negative bacilli isolated. Stop rocephin and add cefepime 2 gram. 04/15: DC Moya, continue antibiotics treating for Pseudomonas in blood and urine. 04/16: Patient had momentary urinary retention with spontaneous resolution VA urinary continence. 04/17: Levaquin to be continued treating Pseudomonas and blood in urine. Repeat blood cultures negative growth to date over 48 hours, patient stable for discharge awaiting placement at SNF. 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 Moya catheter is in place with clear, yellow urine. UOP 400 ml thus far today. 04/14: Cr continues to downtrend. Today it is 1.70. UOP of 2350 ml in the last 24 hours. 04/15: Cr 1.6, GFR 51, stopped IVF. 04/16: Creatinine 1.5 BUN 35 estimated GFR 55 estimated creatinine clearance 29 04/17: Creatinine 1.6 BUN 32 estimated GFR 51 estimated creatinine clearance 28 04/18: Creatinine 1.5 BUN 30 estimated GFR 55 estimated creatinine clearance 30 Resolved (3) Acute hypernatremia: Code(s): E87.0 - Hyperosmolality and hypernatremia Status: Resolved Assessment and Plan: Acute hypernatremia after correction of hyperglycemia. Na 156 nephrology consulted, rec's appreciated. Fluids switched to 1/2 NS at 75 ml per hour Repeat BMP this afternoon 04/14: Na+ normalized at 145. 04/15: Na+ 141. Stopped IVFluids 04/16: Sodium 139 04/17: Sodium 140 04/18: Sodium 139 (4) Uncontrolled type 2 diabetes mellitus: Status: Chronic Assessment and Plan: Uncontrolled type 2 diabetes Patient is on metformin only Given patient's age and renal failure stage IV Discontinue metformin Start Lantus 10 units am And insulin sliding scale a.c. q.h.s. Optimize medications for better glucose control Received fluid resuscitation Continue normal saline IV and 125 mL/hour 04/13: Receiving 10 units of lantus daily and SSI. Blood glucose is much improved. Now with hypernatremia of 157. IV fluids switched to 1/2 NS at 75 ml per hour. Repeating BMP this afternoon. 04/14: No A1C on file. Will add on to am labs. Blood glucose is still not within desired range. Will increase night insulin from 10 units to 12 units. 04/15:Ordered A1c. IVF stopped. 04/16: Hyperglycemia prior to lunch. Additional 5 units insulin ordered. Son pointed out that patient has been eating ice cream with each meal and getting Ensure instead of Glucerna supplements. Nursing staff notified. 04/17: Blood sugars significantly improved after dietary changes yesterday. 04/18: Improved blood glucose (5) Acute hyperkalemia: Code(s): E87.5 - Hyperkalemia Status: Resolved Assessment and Plan: K+ on admission was 6.0. He has received lokoma as well as treatment for hyperglycemia K+ 4.7 today This is what prompted IMU admission. 04/13: Transfer to med-surg 04/14: K+ 4.3 on am labs. Holding lokoma again. 04/15: K+ 4.8, restart Lokelma 04/16: Potassium 3.8. Maicol dougherty
[2023-04-18 12:28] LABS: Glucose Point of Care 209 mg/dl (65-105)
[2023-04-18] MEDS: INSULIN ASPART (*BKC) 100 UNITS/ML SUB-Q (12:34)
--- NOTE | 2023-04-18 14:01 | P.PNNP_ITS ---
Progress Note: A&P Assessment and Plan (1) Acute kidney injury: Code(s): N17.9 - Acute kidney failure, unspecified Status: Acute Assessment and Plan: * improving (if not back to baseline) * suspect due to volume depletion/dehydration +/- infection/sepsis (UTI) * recent imaging suggest obstruction (but straight catheterization in ER not reflective of this) * interestingly, did receive IV contrast on 04/05 with prior ER visit * improvement in renal function noted with just IVF resuscitation * evaluation to date noted: * urine eosinophils negative * urine electrolytes non-prerenal * CPK low * CT on 04/12 with there is no evidence of renal or ureteral calculi. The kidneys and the ureters are nondilated * CT on 04/05 with marked enlargement of the prostate with circumferential wall thickening of the urinary bladder, likely due to chronic outlet obstruction * follow trend of repeat labs and UOP (2) Stage 3a chronic kidney disease: Code(s): N18.31 - Chronic kidney disease, stage 3a Status: Acute Assessment and Plan: * baseline creatinine runs around 1.3 - 1.5mg/dl * this causes him to fluctuate between CKD stage 2 and stage 3A * likely due to hypertension, diabetes, vascular disease and age-related change * he may have a new baseline creatinine of 1.5 - 1.6mg/dl given recent medical issues.... (3) Sepsis: Code(s): A41.9 - Sepsis, unspecified organism Status: Resolved Assessment and Plan: * suspect urosepsis * urine culture with Pseudomonas * blood culture with Pseudomonas as well * on antibiotics * follow repeat cultures (negative to date) (4) Hypernatremia: Code(s): E87.0 - Hyperosmolality and hypernatremia Status: Acute Assessment and Plan: * resolved * due to free water deficit from poor oral hydration and likely secondary to aggressive normal saline IVFs given in ER along with maintenance IVFs as well as hyperglycemia * admission sodium of 143 with a glucose 593 corrects to a sodium of ~ 155 * was on 1/2NS IVFs to provide free water and volume -- off currently * follow sodium level (5) Hyperkalemia: Code(s): E87.5 - Hyperkalemia Status: Acute Assessment and Plan: * resolved * as noted by admission labs * likely due to SYED/ARF + JUS-I use * corrected with medical management * follow repeat K+ levels (6) Chronic anemia: Code(s): D64.9 - Anemia, unspecified Status: Chronic Assessment and Plan: * admission CT suggests possible duodenitis and peptic ulcer * underlying CKD likely playing a role * GI following * anemia studies noted * s/p EGD (on 04/13): * acute duodenal ulcers with stigmata of recent bleeding... * on PPI bid * PRBC transfusion per protocol * follow H/H (7) Essential hypertension: Code(s): I10 - Essential (primary) hypertension Status: Chronic Assessment and Plan: * reasonable control but fluctuating * holding JUS-I at this time due to #1 * follow trend of hemodynamics (8) Uncontrolled type 2 diabetes mellitus: Status: Chronic Assessment and Plan: * as noted by admission glucose of 593 * follow accu-cheks * glycemic control per hospitalists Not much else to add -- will continue to follow intermittently. Subjective Date/time seen: 04/18/23 14:01 Interval history: Follow-up for acute kidney injury/acute renal failure on chronic kidney disease and hypernatremia.
--- NOTE | 2023-04-18 14:01 | PM.PNNEP ---
Progress Note: A&P Assessment and Plan (1) Acute kidney injury: Code(s): N17.9 - Acute kidney failure, unspecified Status: Acute Assessment and Plan: improving (if not back to baseline) suspect due to volume depletion/dehydration +/- infection/sepsis (UTI) recent imaging suggest obstruction (but straight catheterization in ER not reflective of this) interestingly, did receive IV contrast on 04/05 with prior ER visit improvement in renal function noted with just IVF resuscitation evaluation to date noted: urine eosinophils negative urine electrolytes non-prerenal CPK low CT on 04/12 with there is no evidence of renal or ureteral calculi. The kidneys and the ureters are nondilated CT on 04/05 with marked enlargement of the prostate with circumferential wall thickening of the urinary bladder, likely due to chronic outlet obstruction follow trend of repeat labs and UOP (2) Stage 3a chronic kidney disease: Code(s): N18.31 - Chronic kidney disease, stage 3a Status: Acute Assessment and Plan: baseline creatinine runs around 1.3 - 1.5mg/dl this causes him to fluctuate between CKD stage 2 and stage 3A likely due to hypertension, diabetes, vascular disease and age-related change he may have a new baseline creatinine of 1.5 - 1.6mg/dl given recent medical issues.... (3) Sepsis: Code(s): A41.9 - Sepsis, unspecified organism Status: Resolved Assessment and Plan: suspect urosepsis urine culture with Pseudomonas blood culture with Pseudomonas as well on antibiotics follow repeat cultures (negative to date) (4) Hypernatremia: Code(s): E87.0 - Hyperosmolality and hypernatremia Status: Acute Assessment and Plan: resolved due to free water deficit from poor oral hydration and likely secondary to aggressive normal saline IVFs given in ER along with maintenance IVFs as well as hyperglycemia admission sodium of 143 with a glucose 593 corrects to a sodium of ~ 155 was on 1/2NS IVFs to provide free water and volume -- off currently follow sodium level (5) Hyperkalemia: Code(s): E87.5 - Hyperkalemia Status: Acute Assessment and Plan: resolved as noted by admission labs likely due to SYED/ARF + JUS-I use corrected with medical management follow repeat K+ levels (6) Chronic anemia: Code(s): D64.9 - Anemia, unspecified Status: Chronic Assessment and Plan: admission CT suggests possible duodenitis and peptic ulcer underlying CKD likely playing a role GI following anemia studies noted s/p EGD (on 04/13): acute duodenal ulcers with stigmata of recent bleeding... on PPI bid PRBC transfusion per protocol follow H/H (7) Essential hypertension: Code(s): I10 - Essential (primary) hypertension Status: Chronic Assessment and Plan: reasonable control but fluctuating holding JUS-I at this time due to #1 follow trend of hemodynamics (8) Uncontrolled type 2 diabetes mellitus: Status: Chronic Assessment and Plan: as noted by admission glucose of 593 follow accu-cheks glycemic control per hospitalists Not much else to add -- will continue to follow intermittently. Subjective Date/time seen: 04/18/23 14:01 Interval history: Follow-up for acute kidney injury/acute renal failure on chronic kidney disease and hypernatremia. Low H/H noted by AM labs so PRBC transfusion today; otherwise, feels reasonably well; no other issues/events overnight and no apparent distress; renal function remains relatively stable as well. Exam Narrative: General: thin and elderly male in NAD Heart: normal S1 and S2; no rub Lungs: clear to auscultation Abdomen: soft, nontender, nondistended, positive bowel sounds Extremities: no cyanosis or clubbing; no edema Skin: warm and dry Objective Data Vital Signs Vital Signs: Vital
[2023-04-18 17:30] LABS: Glucose Point of Care 160 mg/dl (65-105)
[2023-04-18 21:13] LABS: Glucose Point of Care 180 mg/dl (65-105)
[2023-04-19 06:00] VITALS: BP 131/67; PULSE 69; RESP 13; TEMP 36.2; O2SAT 100
[2023-04-19 07:10] LABS: Basophils Percent Auto 0.3 % (0.2-1.2); Eosinophils Absolute Auto 0.1 K/mm3 (0-0.3); Eosinophils Percent Auto 1.1 % (0-4.4); Hematocrit 32.1 % (42.0-52.0); Immature Granulocyte Absolute 0.04 K/mm3 (0.00-0.031); Immature Granulocyte Percent A 0.6 % (0-0.5); Lymphocytes Absolute Auto 1.54 K/mm3 (0.9-3.2); Lymphocytes Percent Auto 23.3 % (18.3-44.2); Mean Corpuscular HGB Conc 31.2 g/dl (32-36); Mean Corpuscular Hemoglobin 28.3 pg (26-34); Mean Corpuscular Volume 90.9 fl (80-100); Mean Platelet Volume 10.1 fl (7.4-10.4); Monocytes Absolute Auto 0.5 K/mm3 (0.1-0.6); Monocytes Percent Auto 7.7 % (2.6-8.5); Neutrophils Absolute Auto 4.4 K/mm3 (1.3-6.7); Platelet Count Result 423 k/mm3 (150-375); Red Blood Count 3.53 M/mm3 (4.6-6.20); Red Cell Distribution Width 14.6 % (11.5-14.5); White Blood Count 6.6 K/mm3 (4.5-10.0)
[2023-04-19 07:12] LABS: Albumin Level 3.4 g/dL (3.5-5.1); Anion Gap 5 mmol/L (8-16); Blood Urea Nitrogen 27 mg/dL (9-20); Calcium 9.1 mg/dL (8.4-10.2); Carbon Dioxide 27 mmol/L (22-30); Chloride 105 mmol/L (98-107); Estimated CRCL calculation 27 ml/min; Estimated Glomerular Filt Rate 51; Glucose 103 mg/dL (65-110); Phosphorus 2.7 mg/dL (2.5-4.5); Potassium 4.6 mmol/L (3.4-5.0); Sodium 137 mmol/L (137-145)
[2023-04-19 08:20] LABS: Glucose Point of Care 108 mg/dl (65-105)
[2023-04-19] MEDS: INSULIN GLARGINE (*BKC) 100 UNITS/ML 12 UNITS SUB-Q (09:30)
[2023-04-19] MEDS: polyethylene glycoL 3350 17 GM POWD.PACK PO (09:30)
[2023-04-19] MEDS: PANTOPRAZOLE 40 MG TABLET PO ×2 (09:30→21:01)
[2023-04-19] MEDS: dilTIAZem HCL CD 300 MG CAP.24HR PO (09:30)
[2023-04-19] MEDS: MAGNESIUM OXIDE 400 MG TABLET PO (09:30)
[2023-04-19] MEDS: CHOLECALCIFEROL 1,000 UNITS TABLET 2000 UNITS PO ×2 (09:30→18:15)
[2023-04-19 12:37] LABS: Glucose Point of Care 207 mg/dl (65-105)
[2023-04-19 14:00] VITALS: BP 140/58; PULSE 73; RESP 18; TEMP 36.5; O2SAT 100
[2023-04-19] MEDS: BISACODYL 10 MG SUPPOSITORY RECTAL (15:00)
--- NOTE | 2023-04-19 15:15 | PM.IMPN ---
Progress Note: A&P Assessment and Plan (1) Sepsis: Code(s): A41.9 - Sepsis, unspecified organism Status: Resolved Assessment and Plan: Patient has leukocytosis, tachycardia tachypnea UA shows pyuria and microscopic hematuria Possible resulting from UTI and possible gastroenteritis Follow-up blood culture urine culture Start ceftriaxone 1 g IV daily Continue fluid resuscitation 04/13: Urosepsis as most likely culprit. Continue with IV abx. Awaiting urine cultures, blood cultures with NGTD. 04/14: Urine culture is growing pseudomonas and 1/2 blood cultures with gram negative bacilli isolated. Stop rocephin and add cefepime 2 gram. 04/15: DC Moya, continue antibiotics treating for Pseudomonas in blood and urine. 04/16: Patient had momentary urinary retention with spontaneous resolution VA urinary continence. 04/17: Levaquin to be continued treating Pseudomonas and blood in urine. Repeat blood cultures negative growth to date over 48 hours, patient stable for discharge awaiting placement at SNF. 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 Moya catheter is in place with clear, yellow urine. UOP 400 ml thus far today. 04/14: Cr continues to downtrend. Today it is 1.70. UOP of 2350 ml in the last 24 hours. 04/15: Cr 1.6, GFR 51, stopped IVF. 04/16: Creatinine 1.5 BUN 35 estimated GFR 55 estimated creatinine clearance 29 04/17: Creatinine 1.6 BUN 32 estimated GFR 51 estimated creatinine clearance 28 04/18: Creatinine 1.5 BUN 30 estimated GFR 55 estimated creatinine clearance 30 Resolved (3) Acute hypernatremia: Code(s): E87.0 - Hyperosmolality and hypernatremia Status: Resolved Assessment and Plan: Acute hypernatremia after correction of hyperglycemia. Na 156 nephrology consulted, rec's appreciated. Fluids switched to 1/2 NS at 75 ml per hour Repeat BMP this afternoon 04/14: Na+ normalized at 145. 04/15: Na+ 141. Stopped IVFluids 04/16: Sodium 139 04/17: Sodium 140 04/18: Sodium 139 04/19: Sodium 137, Resolved (4) Uncontrolled type 2 diabetes mellitus: Status: Chronic Assessment and Plan: Uncontrolled type 2 diabetes Patient is on metformin only Given patient's age and renal failure stage IV Discontinue metformin Start Lantus 10 units am And insulin sliding scale a.c. q.h.s. Optimize medications for better glucose control Received fluid resuscitation Continue normal saline IV and 125 mL/hour 04/13: Receiving 10 units of lantus daily and SSI. Blood glucose is much improved. Now with hypernatremia of 157. IV fluids switched to 1/2 NS at 75 ml per hour. Repeating BMP this afternoon. 04/14: No A1C on file. Will add on to am labs. Blood glucose is still not within desired range. Will increase night insulin from 10 units to 12 units. 04/15:Ordered A1c. IVF stopped. 04/16: Hyperglycemia prior to lunch. Additional 5 units insulin ordered. Son pointed out that patient has been eating ice cream with each meal and getting Ensure instead of Glucerna supplements. Nursing staff notified. 04/17: Blood sugars significantly improved after dietary changes yesterday. 04/18: Improved blood glucose (5) Acute hyperkalemia: Code(s): E87.5 - Hyperkalemia Status: Resolved Assessment and Plan: K+ on admission was 6.0. He has received lokoma as well as treatment for hyperglycemia K+ 4.7 today This is what prompted IMU admission. 04/13: Transfer to med-surg 04/14: K+ 4.3 on am labs. Holding lokoma again. 04/15: K+ 4.8, restart
[2023-04-19 16:23] LABS: Glucose Point of Care 223 mg/dl (65-105)
[2023-04-19] MEDS: INSULIN ASPART (*BKC) 100 UNITS/ML SUB-Q ×2 (18:16→21:02)
[2023-04-19 20:46] VITALS: BP 125/61; PULSE 90; RESP 16; TEMP 37.1; O2SAT 100
[2023-04-19 20:58] LABS: Glucose Point of Care 286 mg/dl (65-105)
[2023-04-19] MEDS: levoFLOXacin 750 MG TABLET PO (21:01)
[2023-04-20 04:41] VITALS: BP 134/70; PULSE 81; RESP 16; TEMP 36.2; O2SAT 100
[2023-04-20 08:08] LABS: Glucose Point of Care 109 mg/dl (65-105)
[2023-04-20 08:37] VITALS: O2SAT 98
[2023-04-20] MEDS: PANTOPRAZOLE 40 MG TABLET PO (08:40)
[2023-04-20] MEDS: MAGNESIUM OXIDE 400 MG TABLET PO (08:40)
[2023-04-20] MEDS: dilTIAZem HCL CD 300 MG CAP.24HR PO (08:40)
[2023-04-20] MEDS: CHOLECALCIFEROL 1,000 UNITS TABLET 2000 UNITS PO ×2 (08:40→17:03)
[2023-04-20] MEDS: INSULIN GLARGINE (*BKC) 100 UNITS/ML 12 UNITS SUB-Q (08:41)
[2023-04-20 11:35] LABS: Glucose Point of Care 249 mg/dl (65-105)
[2023-04-20] MEDS: INSULIN ASPART (*BKC) 100 UNITS/ML SUB-Q ×2 (11:46→17:01)
--- NOTE | 2023-04-20 12:22 | PM.DS ---
DS: Admitting Diagnosis Discharge Date 04/20/2023 Admitting Diagnosis Acute on chronic kidney failure, uncontrolled type 2 diabetes mellitus, acute hyperkalemia, chronic anemia, essential hypertension, dehydration, sirs, UTI, sepsis DS: Discharge Diagnosis Discharge Diagnosis (1) Sepsis: Code(s): A41.9 - Sepsis, unspecified organism Status: Resolved (2) Acute on chronic kidney failure: Code(s): N17.9 - Acute kidney failure, unspecified; N18.9 - Chronic kidney disease, unspecified Status: Resolved (3) Acute hypernatremia: Code(s): E87.0 - Hyperosmolality and hypernatremia Status: Resolved (4) Uncontrolled type 2 diabetes mellitus: Status: Chronic (5) Acute hyperkalemia: Code(s): E87.5 - Hyperkalemia Status: Resolved (6) Chronic anemia: Code(s): D64.9 - Anemia, unspecified Status: Chronic (7) Essential hypertension: Code(s): I10 - Essential (primary) hypertension Status: Chronic (8) UTI (urinary tract infection): Code(s): N39.0 - Urinary tract infection, site not specified Status: Resolved (9) Severe protein-calorie malnutrition: Code(s): E43 - Unspecified severe protein-calorie malnutrition Status: Acute DS: Summary Hospital Course Reason for hospitalization: generalized weakness and uncontrolled glucose; found to have UTI, sepsis and acute on chronic kidney failure Hospital Course: 04/12: This is a 82-year-old gentleman with history of type 2 diabetes, CKD stage 3, chronic anemia, essential hypertension, dementia who present ED with a chief complaint of general weakness and uncontrolled glucose.? Patient has been having general weakness a in past few more days, getting worse gradually.? Patient has history of diabetes on metformin and and he notices blood sugars were running in the 500s.? Patient came to ED for evaluation, in the ED, patient was found have white count of 14.8 electrolytes showed a potassium of 6.0 CO2 was 19, BUN? 94 creatinine? 4.5, above baseline creatinine 1.5, BUN 28 on April 05, 2023 glucose was 593.? In the ED, patient received 2 L normal saline boluses and was given 10 units of IV insulin.? Blood sugar has come down to 441 liver enzymes within normal beta hydroxybutyrate 0.61 urinalysis showed greater than 100 rbc's 6-[address] scan of the abdomen pelvis showed?possible wall thickening of the duodenum suspecting duodenitis/peptic ulcer disease. 04/13: Patient is seen today after his EGD. He is resting in bed and in no acute distress. He is a poor historian as he has baseline dementia and confusion. I spoke with his career services director who says that he waxes and wanes on how sharp he is . He also has a history of sundowning. He is orientated to self for me and knows his family but otherwise cannot tell me where he is or why. He just keeps telling me that he is taking it easy and taking it all in . He denies pain, h/a, chest pain, or SOB. I discussed with family the current findings and plan of care. I also mentioned that he would be downgraded to a regular floor bed. 04/14:? Patient is seen resting in bed in no acute distress.? He is alert oriented to self.? He denies complaints at this time.? Creatinine continues to improve.? His urine culture did come back with Pseudomonas.? Transition his antibiotics to cefepime.? 1 of 2 blood cultures positive for Gram-negative bacilli.? Will repeat cultures tomorrow morning after 24 hours of new antibiotics. 04/15:? Patient seen sitting up in the chair eating breakfast with no complaints.? Renal labs improving.? Moya catheter removed.? Cultures are pansensitive.? Blood cultures redrawn.? Will initiate Levaquin oral starting tomorrow.? Will monitor for culture results and plan discharge in 1-3 days.? PT/OT ordered.? Lokelma restarted. 04/16:? Renal function improving potassium normal.? Lokelma discontinued.? Blood cultures negative growth to date for 24 hours.? Patient i
[2023-04-20 14:00] VITALS: BP 124/52; PULSE 86; RESP 16; TEMP 36.6; O2SAT 100
[2023-04-20 16:31] LABS: Glucose Point of Care 274 mg/dl (65-105)
== END 2023-04-20 17:30 | disposition home or self-care (01) | DRG 871 ==
LOC: ANHED 07:19 → ANHIMU 08:42 → ANH3MEDSUR 04-13 18:53
PROVIDERS: Hospitalist; Internal Medicine Gastroenterology; Internal Medicine Nephrology; Nurse Practitioner Acute Care; Admitting Provider Internal Medicine; Emergency Provider Emergency Medicine; Visit Provider Nurse Practitioner
PROC: 0DJ08ZZ Inspection of Upper Intestinal Tract, Via Natural or Artificial Opening Endoscopic (ICD-10-PCS; CPT 43235; principal; 2023-04-13 09:00)
DX: A41.9 Sepsis, unspecified organism (principal); E43 Unspecified severe protein-calorie malnutrition; K26.0 Acute duodenal ulcer with hemorrhage; N17.9 Acute kidney failure, unspecified; E87.0 Hyperosmolality and hypernatremia; Z68.1 Body mass index [BMI] 19.9 or less, adult; N39.0 Urinary tract infection, site not specified; B96.5 Pseudomonas (aeruginosa) (mallei) (pseudomallei) as the cause of diseases classified elsewhere; R31.29 Other microscopic hematuria; K52.9 Noninfective gastroenteritis and colitis, unspecified; F03.90 Unspecified dementia, unspecified severity, without behavioral disturbance, psychotic disturbance, mood disturbance, and anxiety; I12.9 Hypertensive chronic kidney disease with stage 1 through stage 4 chronic kidney disease, or unspecified chronic kidney disease; E11.22 Type 2 diabetes mellitus with diabetic chronic kidney disease; N18.31 Chronic kidney disease, stage 3a; E11.65 Type 2 diabetes mellitus with hyperglycemia; E87.5 Hyperkalemia; D63.1 Anemia in chronic kidney disease; E86.0 Dehydration; I77.9 Disorder of arteries and arterioles, unspecified; Z90.49 Acquired absence of other specified parts of digestive tract; Z87.891 Personal history of nicotine dependence; Z79.84 Long term (current) use of oral hypoglycemic drugs; Z95.5 Presence of coronary angioplasty implant and graft; I25.2 Old myocardial infarction
CPT/HCPCS: 36415; 36430; 74176; 80048; 80053; 80069; 81001; 81050; 82010; 82274; 82550; 82570; 82607; 82728; 82746; 82948; 83036; 83540; 83550; 83735; 84100; 84156; 84300; 84540; 85014; 85018; 85025; 85610; 85730; 85999; 86850; 86900; 86901; 86923; 87040; 87077; 87081; 87086; 87088; 87186; 88305; 93005; 96361; 96365; 96375; 97110; 97116; 97162; 97165; 97530; 97535; 99285; A9270; C9113; G0378; J0692; J0696; J1650; J1815; J2704; J7030; J7050; J7120; P9016